=== PATIENT | male | born 1950 | race Caucasian/White ===

== ENCOUNTER 2021-03-28 14:55 | Emergency (ER) | payer MEDICARE, SELFPAY ==
[2021-03-28 15:06] VITALS: BP 219/79; PULSE 70; RESP 17; TEMP 37; O2SAT 96; BMI 23.1
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
[2021-03-28] MEDS: cephALEXin 500 mg Capsule PO (17:39)
[2021-03-28] MEDS: tetanus-dipt-pertussis 0.5 mL SDV IM (17:40)
== END 2021-03-28 17:47 | disposition home or self-care (01) ==
PROVIDERS: Emergency Provider Physician Assistant; PCP Family Medicine
DX: S51.812A Laceration without foreign body of left forearm, initial encounter (principal); X58.XXXA Exposure to other specified factors, initial encounter
CPT/HCPCS: 73090; 90471; 90715; 96372; 99283

== ENCOUNTER → 2021-05-13 09:20 | Outpatient (BNVA) | payer MEDICARE, SELFPAY | PROVIDERS: PCP Family Medicine; Visit Provider Family Medicine | DX: Z01.812 Encounter for preprocedural laboratory examination (principal) | CPT/HCPCS: 87635 ==

== ENCOUNTER 2021-05-19 07:15 | Outpatient (CLI) | payer MEDICARE, SELFPAY ==
--- NOTE | 2021-05-19 11:15 | PFTS_ITS ---
Date of Study:05/19/21 Date of Dictation: MECHANICS: Forced vital capacity (FVC) is normal. Forced expiratory volume in one second (FEV1) is reduced. FEV1/FVC is reduced. FLOW VOLUME LOOP: Reduced flow at all lung volumes with significant scooping. LUNG VOLUMES: Total lung capacity (TLC) is normal. Residual volume (RV) is increased. DIFFUSING CAPACITY FOR CARBON MONOXIDE: Normal. INTERPRETATION: The postbronchodilator spirometry is consistent with moderate airflow obstruction. There is a significant postbronchodilator response. Lung volumes are consistent with air trapping. Gas exchange (DLCO) is normal. MTDD
== END 2021-05-19 07:16 | disposition home or self-care (01) ==
LOC: RT 07:19
PROVIDERS: PCP Family Medicine; Visit Provider Family Medicine
DX: J44.9 Chronic obstructive pulmonary disease, unspecified (principal)
CPT/HCPCS: 94060; 94726; 94729; J7611

== ENCOUNTER 2021-12-16 18:24 | Emergency (ER) | payer MEDICARE, SELFPAY ==
[2021-12-16] VITALS (10 sets, daily range): BP systolic 97–134; BP diastolic 68–81; PULSE 56–80; RESP 12–23; TEMP 36.7; O2SAT 90–96; BMI 21.5; BMI 21.8
--- NOTE | 2021-12-16 18:28 | ECG_ITS ---
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 Measurements Intervals [place] Rate: 66 P: 72 [place]: 154 QRS: 83 QRSD: 88 T: 76 QT: 383 QTc: 402 Interpretive Statements SINUS RHYTHM WITH MARKED SINUS ARRHYTHMIA Compared to ECG 10/18/2016 13:06:51 Sinus bradycardia no longer present Electronically Signed On 12-16-2021 23:21:52 CDT by Jake Ferrer M.D. [email or web address] north [email or web address]/store/[id number]
--- NOTE | 2021-12-16 18:28 | XRR_ITS ---
PROCEDURE INFORMATION: Exam: XR Chest Exam date and time: 12/16/2021 6:48 PM Age: 71 years old Clinical indication: Angina; Additional info: Chest pain TECHNIQUE: Imaging protocol: Radiologic exam of the chest. Views: 1 view. COMPARISON: CR XR chest 2V* [id number] 04/08/2021 10:15 AM FINDINGS: Lungs: Visualized portions of the lungs are clear. Pulmonary hyperinflation unchanged. Pleural spaces: Unremarkable. No pleural effusion. No pneumothorax. Heart/Mediastinum: Heart is within normal limits of size. Bones/joints: Unremarkable. XR/XR chest 1V portable [id number] IMPRESSION: No acute infiltrate
--- NOTE | 2021-12-16 18:32 | ED_ITS ---
HPI - Chest Pain General: Chief Complaint: Chest Pain Stated Complaint: CHEST PAIN Time Seen by Provider: 12/16/21 18:31 History of Present Illness: Mr. Ohara is a 71-year-old gentleman with history of COPD who presents to the emergency department due to chest discomfort. He reports being at his baseline health and is quite active at baseline. At approximately 530 he had onset at rest of aching pressure in the left anterior chest with radiation down the left arm. He had associated clamminess and generalized malaise. He since has had mild cough and some shortness of breath. Denies frequent episodes in the past. Intensity of symptoms when present was moderate. Course has persisted. No other specific changes in health, exacerbating, or alleviating factors identified. Onset (ago): hour(s) Timing of current episode: constant Onset: during rest Pain location: left chest Pain radiation: left arm and left shoulder Severity: moderate Quality: tightness and aching Associated symptoms: Reports diaphoresis, dyspnea and other Review of Systems General: Reports: 10 or more systems reviewed and unremarkable except in HPI and below Const: Reports: diaphoresis Resp: Reports: dyspnea PFSH ED PFSH: Medical History (Updated 12/24/21 @ 00:01 by ) COPD (chronic obstructive pulmonary disease) Surgical History (Updated 12/16/21 @ 18:50 by Akhil Gage MD) History of spinal fusion Social History (Updated 12/16/21 @ 18:50 by Akhil Gage MD) Smoking and tobacco status: former smoker Physical Exam Const: COMMON NORMALS: alert GENERAL APPEARANCE: cooperative and well developed HENMT: COMMON NORMALS: normocephalic and atraumatic HEAD & SCALP: normocephalic and atraumatic Eye: COMMON NORMALS: conjunctivae normal CONJUNCTIVA: Yes conjunctivae normal SCLERA: sclerae normal Neck/C-Spine: COMMON NORMALS: supple GENERAL: Yes trachea midline Resp: COMMON NORMALS: normal respiratory effort and clear to auscultation bilaterally EFFORT & INSPECTION: Yes able to speak in complete sentences AUSCULTATION: clear to auscultation bilaterally Cardio: COMMON NORMALS: regular rate and regular rhythm RATE: regular rate RHYTHM: regular rhythm GI: COMMON NORMALS: Soft to palpation PALPATION: Yes Soft to palpation and No Tenderness to palpation present (GI) Extremity: GENERAL: Yes normal exam except as noted and No edema Neuro: COMMON NORMALS: moves all extremities SENSORIUM/ORIENTATION: Yes alert and No Orientation impaired Psych: COMMON NORMALS: mental status grossly normal and Normal thought process present THOUGHT PROCESS: Normal thought process present Course ED course: - Patient was seen and evaluated by me at bedside - Patient placed on cardiac monitors, IV access obtained - Initial evaluation notable for exam above - Labs and xrays personally interpreted by me EKG with sinus rhythm, no STEMI. -Aspirin and nitro given - Labs notable for no leukocytosis, normal hemoglobin. Metabolic panel without significant derangement. Delta troponin negative. Viral studies negative. - Imaging notable for no lobar consolidation or pneumothorax - Upon serial reexamination after treatment the patient was improved - Based on patient history, evaluation, and testing as interpreted the most likely cause of the patient's condition is chest pain of uncertain etiology - The results of ED evaluation were discussed with the patient including possible disposition options. I discussed risk stratification by heart score and estimated risk of major adverse cardiac events. The patient wishes to proc eed with outpatient management. I discussed prescriptions and/or symptomatic cares (if applicable) including appropriate and responsible use, followup plan, and return precautions. The patient verbalized understanding and felt safe for discharge. - Patient discharged in satisfactory condition. Note: Click bubbles or prepopulated horne in note writing are used for assistance with data collection and billing and are inherently more limited than narrative and other text portions of this note. Please use narrative for additional clinical history and defer to narrative/free test for any case of contradictory information. If information appears in only free text or click bubble it should be considered present or absent as reported. Please contact note teletypewriter installer for clarifications of clinical information or contradictory information. MDM is a brief summary, contradictory or erroneous seeming information should be clarified and full note should be reviewed. Vital Signs: Vital signs: Vital Signs Temperature 98.1 F 12/16/21 18:34 Pulse Rate 59 L 12/16/21 22:45 Respiratory Rate 14 12/16/21 22:45 Blood Pressure 134/79 12/16/21 22:45 Pulse Oximetry 95 12/16/21 22:45 Oxygen Delivery Ne thod 12/16/21 21:30 MDM - Chest Pain Medical Decision Making 71-year-old gentleman without any past medical tree presenting with chest pain. Negative troponins. No clear etiology of patient's symptoms. We engaged in shared thinking regarding disposition patient wishes to proceed with further testing in the outpatient setting. Case management will be messaged. Satisfactory for outpatient management with strict return precautions. Medical Records I reviewed the patient's medical records. Lab Data I reviewed the patient's lab results. : 12/16/21 18:42 12/16/21 18:42 Radiology Impressions Chest X-Ray 12/16/21 18:28 IMPRESSION: No acute infiltrate Laboratory Results WBC 7.9 10^3/uL (4.0-10.0) 12/16/21 18:42 RBC 4.46 10^6/uL (4.1-5.3) 12/16/21 18:42 Hgb 14.2 g/dL (11.7-16.6) 12/16/21 18:42 Hct 42.6 % (42.0-52.0) 12/16/21 18:42 MCV 95.5 fl (80-94) H 12/16/21 18:42 MCH 31.8 pg (28.0-34.0) 12/16/21 18:42 MCHC 33.3 g/dL (30.0-36.0) 12/16/21 18:42 RDW 12.5 % (12.1-15.1) 12/16/21 18:42 Plt Count 251 10^3/cmm (130-400) 12/16/21 18:42 MPV 10.0 fL (7.4-10.4) 12/16/21 18:42 Neut % (Auto) 58.6 % 12/16/21 18:42 Lymph % (Auto) 30.7 % 12/16/21 18:42 [place]et % (Auto) 8.8 % 12/16/21 18:42 Eos % (Auto) 1.4 % 12/16/21 18:42 Baso % (Auto) 0.4 % 12/16/21 18:42 Neut # (Auto) 4.60 10^3/uL (1.8-7.7) 12/16/21 18:42 Lymph # (Auto) 2.4 10^3/uL (0.8-4.8) 12/16/21 18:42 [place]et # (Auto) 0.7 10^3/uL (0.2-0.9) 12/16/21 18:42 Eos # (Auto) 0.1 10^3/uL (0.0-0.8) 12/16/21 18:42 Baso # (Auto) 0.0 10^3/uL (0.0-0.1) 12/16/21 18:42 Nucleated RBC % (auto) 0 % 12/16/21 18:42 Nucleated RBCs # 0.0 /100WBC 12/16/21 18:42 Sodium 138 mmol/L (136-145) 12/16/21 18:42 Potassium 3.9 mmol/L (3.5-5.1) 12/16/21 18:42 Chloride 101 mmol/L (98-107) 12/16/21 18:42 Carbon Dioxide 25 mmol/L (22-29) 12/16/21 18:42 Anion Gap 15.9 (5-19) 12/16/21 18:42 BUN 20 mg/dL (8-23) 12/16/21 18:42 Creatinine 0.9 mg/dL (0.7-1.2) 12/16/21 18:42 GFR Calculation 83.4 mL/min (90-130) L 12/16/21 18:42 Glucose 137 mg/dL (65-115) H 12/16/21 18:42 Calculated Osmolality 291 mOsm/kg (285-295) 12/16/21 18:42 Calcium 9.3 mg/dL (8.5-10.5) 12/16/21 18:42 Total Bilirubin 0.2 mg/dL (0.15-1.2) 12/16/21 18:42 Direct Bilirubin 0.20 mg/dL (0.00-0.30) 12/16/21 18:42 AST 16 U/L (0-40) 12/16/21 18:42 ALT 13 U/L (0-41) 12/16/21 18:42 Alkaline Phosphatase 77 IU/L (40-130) 12/16/21 18:42 Troponin T Baseline 7 ng/L (0-15) 12/16/21 18:42 Troponin T 120 Minute 7.32 ng/L (0-15) 12/16/21 21:05 Delta Troponin T 0.32 ABS# (0-10) 12/16/21 21:05 NT-Pro-B Natriuret Pep 81 pg/mL (0-125) 12/16/21 18:42 Total Protein 6.4 g/dL (6.6-8.7) L 12/16/21 18:42 Albumin 4.6 g/dL (3.5-5.2) 12/16/21 18:42 Globulin 1.8 g/dL (1.3-4.6) 12/16/21 18:42 Lipase 27 U/L (13-60) 12/16/21 18:42 Influenza Type A Ag Negative (Negative) 12/16/21 20:14 Influenza Type B Ag Negative (Negative) 12/16/21 20:14 SARS-CoV-2 Ag (Rapid) Negative (Negative) 12/16/21 20:14 Discharge Plan Discharge Patient Disposition: Home Clinical Impression: Chest pain Condition: Stable Prescriptions: No Action Tylenol Ex Str Rapid Release 500 mg Tablet 1,000 mg PO Q6H PRN (Reason: Pain) Discharge Orders: Discharge ED (Routine); Ordered 12/16/21 Ordered By: Akhil Gage Referrals: Karen Gay MD [Primary Care Provider] - Patient Instructions: Chest Pain (ED) Activity Restrictions/Additional Instructions: Thank you for visiting the emergency department. You were seen and evaluated for chest pain. The exact cause of your symptoms is unclear though as discussed does require further evaluation. I will message case management for outpatient stress test and echocardiogram. Please follow-up with your primary care provider. Please return to the emergency department for recurrence of symptoms or anything else that you are concerned about and feel needs emergency department evaluation. Coding Level of Care Code ED Refrigeration Insulator for Blake Fwd Exam Comprehensive
[2021-12-16 18:59] LABS: Basophils % 0.4 %; Eosinophils # 0.1 10^3/uL (0.0-0.8); Eosinophils % 1.4 %; Hematocrit 42.6 % (42.0-52.0); Hemoglobin 14.2 g/dL (11.7-16.6); Lymphocytes # 2.4 10^3/uL (0.8-4.8); Lymphocytes % 30.7 %; Mean Corpuscular HGB Conc 33.3 g/dL (30.0-36.0); Mean Corpuscular Hemoglobin 31.8 pg (28.0-34.0); Mean Corpuscular Volume 95.5 fl (80-94); Monocytes # 0.7 10^3/uL (0.2-0.9); Monocytes % 8.8 %; Neutrophils % 58.6 %; Nucleated Red Blood Cells % 0 %; Platelet Count 251 10^3/cmm (130-400); Red Blood Count 4.46 10^6/uL (4.1-5.3); Red Cell Distribution Width 12.5 % (12.1-15.1); White Blood Count 7.9 10^3/uL (4.0-10.0)
[2021-12-16] MEDS: aspirin 81 mg Chew Tablet 324 MG PO (19:10)
[2021-12-16 19:51] LABS: Troponin(5th) Baseline 7 ng/L (0-15)
[2021-12-16 19:52] LABS: Alanine Aminotransferase 13 U/L (0-41); Albumin Level 4.6 g/dL (3.5-5.2); Alkaline Phosphatase 77 IU/L (40-130); Anion Gap 15.9 (5-19); Aspartate Amino Transferase 16 U/L (0-40); Blood Urea Nitrogen 20 mg/dL (8-23); Calcium 9.3 mg/dL (8.5-10.5); Carbon Dioxide 25 mmol/L (22-29); Chloride 101 mmol/L (98-107); Globulin 1.8 g/dL (1.3-4.6); Glomerular Filtration Rate 83.4 mL/min (90-130); Glucose 137 mg/dL (65-115); Lipase 27 U/L (13-60); NT Pro B Type Natriuretic Pept 81 pg/mL (0-125); Osmolality Calculated 291 mOsm/kg (285-295); Potassium 3.9 mmol/L (3.5-5.1); Sodium 138 mmol/L (136-145); Total Bilirubin 0.2 mg/dL (0.15-1.2); Total Protein 6.4 g/dL (6.6-8.7)
--- NOTE | 2021-12-16 20:28 | ECG_ITS ---
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 Measurements Intervals [place] Rate: 58 P: 74 PA: 150 QRS: 81 QRSD: 93 T: 76 QT: 408 QTc: 403 Interpretive Statements SINUS BRADYCARDIA MODERATE ST DEPRESSION [0.05+ mV ST DEPRESSION] Compared to ECG 12/16/2021 18:31:11 ST (T wave) deviation now present Sinus rhythm no longer present Sinus arrhythmia no longer present Electronically Signed On 12-16-2021 23:23:01 CDT by Jake Ferrer M.D. [id number]
[2021-12-16 20:53] LABS: SARS Covid-2 Antigen Negative (Negative)
[2021-12-16 20:54] LABS: Influenza A by IFA Negative (Negative); Influenza B by IFA Negative (Negative)
[2021-12-16 21:28] LABS: Troponin 5 2HR 7.32 ng/L (0-15)
[2021-12-16 21:47] LABS: Troponin 5 2HR Delta 0.32 ABS# (0-10)
--- NOTE | 2021-12-17 12:26 | DCPLANNER ---
Addendum entered by Shiloh Tejada 02/18/22 13:46: Patient had a stress test scheduled - patient did attend appointment Patient had an outpatient echo scheduled - patient did attend appointment. Original Note: manager packaging had message to schedule an outpatient stress test and echo cardiogram for patient. manager packaging faxed signed order to centralized scheduling, who will call patient with appointment information.
== END 2021-12-16 22:44 | disposition home or self-care (01) ==
PROVIDERS: Emergency Medicine; Emergency Provider Emergency Medicine; PCP Family Medicine
DX: R07.9 Chest pain, unspecified (principal); J44.9 Chronic obstructive pulmonary disease, unspecified; Z87.891 Personal history of nicotine dependence; Z20.822 Contact with and (suspected) exposure to COVID-19
CPT/HCPCS: 71045; 80048; 80076; 83690; 83880; 84484; 85025; 87426; 87804; 93005; 96375; 99285

== ENCOUNTER 2022-01-19 11:08 | Emergency (ER) | payer MEDICARE, SELFPAY ==
[2022-01-19] VITALS (7 sets, daily range): BP systolic 118–148; BP diastolic 54–91; PULSE 55–87; RESP 12–18; TEMP 36.8; O2SAT 94–99; BMI 23.1
--- NOTE | 2022-01-19 11:09 | ECG_ITS ---
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 Measurements Intervals [place] Rate: 73 P: 81 [place]: 146 QRS: 86 QRSD: 92 T: 83 QT: 368 QTc: 408 Interpretive Statements SINUS RHYTHM Compared to ECG 12/16/2021 20:45:19 Sinus bradycardia no longer present ST (T wave) deviation no longer present Electronically Signed On 01-19-2022 17:49:56 CDT by Jake Ferrer M.D. [id number]
--- NOTE | 2022-01-19 11:27 | XRR_ITS ---
PROCEDURE INFORMATION: Exam: XR Chest Exam date and time: 01/19/2022 11:39 AM Age: 71 years old Clinical indication: Pain; Angina pectoris; Additional info: Chest pain TECHNIQUE: Imaging protocol: Radiologic exam of the chest. Views: 1 view. Total images: [id number] COMPARISON: CR (CHEST, ) 12/16/2021 6:48 PM FINDINGS: Lungs: Unremarkable. No consolidation. Pleural spaces: Unremarkable. No pleural effusion. No pneumothorax. Heart/Mediastinum: Unremarkable. No cardiomegaly. Bones/joints: Unremarkable. XR/XR chest 1V portable [id number] IMPRESSION: No acute findings.
--- NOTE | 2022-01-19 11:30 | PC.NURSE ---
pt reports 2 weeks ago he was seen here for CP where admission was recommended but pt wanted to go home. pt reports his pcp gave him nitro and asa. reports shooting pains to chest. pain worsens when walking or working, but also intermittently worsens at rest. pain is reproducible with palpitation to right side ribs. pt speech clear, speaking in complete sentences without difficulty.
[2022-01-19 11:45] LABS: Basophils % 0.4 %; Eosinophils # 0.1 10^3/uL (0.0-0.8); Eosinophils % 0.8 %; Hematocrit 51.5 % (42.0-52.0); Hemoglobin 16.4 g/dL (11.7-16.6); Lymphocytes # 2.9 10^3/uL (0.8-4.8); Lymphocytes % 31.8 %; Mean Corpuscular HGB Conc 31.8 g/dL (30.0-36.0); Mean Corpuscular Hemoglobin 31.5 pg (28.0-34.0); Mean Platelet Volume 10.2 fL (7.4-10.4); Monocytes # 0.7 10^3/uL (0.2-0.9); Monocytes % 7.9 %; Neutrophils # 5.44 10^3/uL (1.8-7.7); Neutrophils % 58.8 %; Nucleated Red Blood Cells % 0 %; Platelet Count 225 10^3/cmm (130-400); Red Cell Distribution Width 17.4 % (12.1-15.1); White Blood Count 9.3 10^3/uL (4.0-10.0)
--- NOTE | 2022-01-19 11:45 | W.ED.CHESTPA ---
HPI - Chest Pain General: Chief Complaint: Chest Pain Stated Complaint: chest pain Time Seen by Provider: 01/19/22 11:26 History of Present Illness: 71-year-old male presenting today with left-sided chest pain. Patient notes that he has had left-sided chest pain intermittently for 3 days. Has been previously evaluated in this emergency room for the same. Notes pain has been intermittent. He describes a stabbing sensation. Not worse or improved by anything. Is currently being followed by his primary care doctor for the same. He denies fevers or chills. He denies cough. He does have chronic shortness of breath secondary to COPD. Does not appear to be worse from baseline. He denies pain or swelling in his lower extremities. He denies history of blood clots. He denies history of coronary artery disease. Review of Systems General: Reports: 10 or more systems reviewed and unremarkable except in HPI and below PFS ED PFSH: Medical History (Updated 01/19/22 @ 13:42 by Braulio Tatum DO) COPD (chronic obstructive pulmonary disease) Surgical History (Updated 12/16/21 @ 18:50 by Akhil Gage MD) History of spinal fusion Social History (Updated 12/16/21 @ 18:50 by Akhil Gage MD) Smoking and tobacco status: former smoker Physical Exam Const: COMMON NORMALS: no acute distress, patient oriented x3 and alert GENERAL APPEARANCE: cooperative ORIENTATION/CONSCIOUSNESS: Yes awake, Yes oriented to person, Yes oriented to place and Yes oriented to time HENMT: COMMON NORMALS: normocephalic, atraumatic, external ears normal, Normal external nose present and moist oral mucous membranes HEAD & SCALP: normal to inspection, normocephalic and atraumatic NOSE: Normal external nose present GENERAL EAR: hearing grossly impaired EXTERNAL EAR: Yes external ears normal Eye: COMMON NORMALS: Equal, round and reactive pupils present, EOMs intact bilaterally, conjunctivae normal and no scleral icterus GENERAL EYE: appearance normal, both eyes and all related structures EYELID: eyelids normal CONJUNCTIVA: Yes conjunctivae normal SCLERA: sclerae normal PUPIL: Yes Equal, round and reactive pupils present Neck/C-Spine: COMMON NORMALS: full ROM, supple and no JVD GENERAL: Yes normal visual inspection Lymph: LYMPHATIC: no lymphadenopathy noted and no lymphedema noted Chest: COMMONS NORMALS: normal inspection of the chest Resp: COMMON NORMALS: normal respiratory effort, No retractions and No use of accessory muscles Cardio: COMMON NORMALS: no JVD, regular rate and regular rhythm RATE: regular rate RHYTHM: regular rhythm GI: COMMON NORMALS: Normal to inspection, nondistended, normoactive bowel sounds present : COMMON NORMALS: Yes no CVA tenderness BLADDER/KIDNEY EXAM: Yes no CVA tenderness Back/Pelvis: COMMON NORMALS: no CVA tenderness and thoracic and lumbar spine normal to inspection Extremity: COMMON NORMALS: normal to inspection, full ROM and capillary refill normal GENERAL: Yes normal exam except as noted Neuro: COMMON NORMALS: patient oriented x3, CN's II-XII intact bilaterally, moves all extremities, no focal motor deficits, no sensory deficits noted and gait normal SENSORIUM/ORIENTATION: Yes alert, Yes oriented to person, Yes oriented to place and Yes oriented to time Psych: COMMON NORMALS: mental status grossly normal, Normal thought process present, cooperative and normal affect THOUGHT PROCESS: Normal thought process present Skin: COMMON NORMALS: no rashes or lesions noted and no wounds GENERAL SKIN EXAM: no rashes or lesions noted Course Vital Signs: Vital signs: Vital Signs Temperature 98.2 F 01/19/22 11:13 Pulse Rate 65 01/19/22 11:13 Respiratory Rate 18 01/19/22 11:13 Blood Pressure 148/91 01/19/22 11:13 Pulse Oximetry 97 01/19/22 11:13 Oxygen Delivery Me thod 01/19/22 11:13 MDM - Chest Pain Medical Decision Making 71-year-old male presenting today with left-sided chest pain. EKG with normal sinus rhythm without evidence of acute ischemia, or cardiac arrhythmias. Vitals with slightly elevated blood pressure otherwise within normal limits. CBC is unremarkable. CMP is unremarkable. Troponin is within normal range. Patient with chest pain does not appear to represent acute coronary syndrome. Recommended routine follow-up with his primary care for further evaluation and management. Return precautions were given and recommended routine outpatient follow-up. Lab Data : 01/19/22 11:35 01/19/22 12:55 Radiology Impressions Chest X-Ray 01/19/22 11:27 IMPRESSION: No acute findings. Laboratory Results WBC 9.3 10^3/uL (4.0-10.0) 01/19/22 11:35 RBC 5.20 10^6/uL (4.1-5.3) 01/19/22 11:35 Hgb 16.4 g/dL (11.7-16.6) 01/19/22 11:35 Hct 51.5 % (42.0-52.0) 01/19/22 11:35 MCV 99.0 fl (80-94) H 01/19/22 11:35 MCH 31.5 pg (28.0-34.0) 01/19/22 11:35 MCHC 31.8 g/dL (30.0-36.0) 01/19/22 11:35 RDW 17.4 % (12.1-15.1) H 01/19/22 11:35 Plt Count 225 10^3/cmm (130-400) 01/19/22 11:35 MPV 10.2 fL (7.4-10.4) 01/19/22 11:35 Neut % (Auto) 58.8 % 01/19/22 11:35 Lymph % (Auto) 31.8 % 01/19/22 11:35 [place] % (Auto) 7.9 % 01/19/22 11:35 Eos % (Auto) 0.8 % 01/19/22 11:35 Baso % (Auto) 0.4 % 01/19/22 11:35 Neut # (Auto) 5.44 10^3/uL (1.8-7.7) 01/19/22 11:35 Lymph # (Auto) 2.9 10^3/uL (0.8-4.8) 01/19/22 11:35 [place] # (Auto) 0.7 10^3/uL (0.2-0.9) 01/19/22 11:35 Eos # (Auto) 0.1 10^3/uL (0.0-0.8) 01/19/22 11:35 Baso # (Auto) 0.0 10^3/uL (0.0-0.1) 01/19/22 11:35 Nucleated RBC % (auto) 0 % 01/19/22 11:35 Nucleated RBCs # 0.0 /100WBC 01/19/22 11:35 D-Dimer 0.28 ug/mIFEU (0-0.59) 01/19/22 12:55 Sodium 138 mmol/L (136-145) 01/19/22 12:55 Potassium 4.2 mmol/L (3.5-5.1) 01/19/22 12:55 Chloride 102 mmol/L (98-107) 01/19/22 12:55 Carbon Dioxide 24 mmol/L (22-29) 01/19/22 12:55 Anion Gap 16.2 (5-19) 01/19/22 12:55 BUN 12 mg/dL (8-23) 01/19/22 12:55 Creatinine 0.7 mg/dL (0.7-1.2) 01/19/22 12:55 GFR Calculation 111.5 mL/min (90-130) 01/19/22 12:55 Glucose 89 mg/dL (65-115) 01/19/22 12:55 Calculated Osmolality 285 mOsm/kg (285-295) 01/19/22 12:55 Calcium 9.7 mg/dL (8.5-10.5) 01/19/22 12:55 Total Bilirubin 0.7 mg/dL (0.15-1.2) 01/19/22 12:55 AST 14 U/L (0-40) 01/19/22 12:55 ALT 13 U/L (0-41) 01/19/22 12:55 Alkaline Phosphatase 75 U/L (40-130) 01/19/22 12:55 Troponin T Baseline 8 ng/L (0-15) 01/19/22 12:55 Total Protein 6.7 g/dL (6.6-8.7) 01/19/22 12:55 Albumin 4.8 g/dL (3.5-5.2) 01/19/22 12:55 Globulin 1.9 g/dL (1.3-4.6) 01/19/22 12:55 Discharge Plan Discharge Patient Disposition: Home Clinical Impression: Chest pain Condition: Stable Prescriptions: No Action acetaminophen [Tylenol Ex Str Rapid Release] 500 mg Tablet 1,000 mg PO Q6H PRN (Reason: Pain) Aspir-81 81 mg Tablet,Delayed Release (Dr/Ec) 81 mg PO QAM Nitrostat 0.4 mg Tablet, Sublingual 0.4 mg SUBLINGUAL Q5M PRN (Reason: Chest Pain) Rx Instructions: do not exceed 3 doses per episode Discharge Orders: Discharge ED (Routine); Ordered 01/19/22 Ordered By: Braulio Tatum Referrals: Karen Gay MD [Primary Care Provider] - Discharge Diet: Advance as tolerated Discharge Activity: Resume usual activity Patient Instructions: Chest Pain (ED) Coding Level of Care Code ED Compensation And Benefits Analyst for Chg Fwd Exam Comprehensive
[2022-01-19 13:26] LABS: D Dimer 0.28 ug/mIFEU (0-0.59)
[2022-01-19] MEDS: lidocaine 2% viscous 15 ML, aluminum-mag hydrox-simethicon 30 ML, sucralfate oral liq 1 GM PO (13:29)
[2022-01-19] MEDS: acetaminophen 500 mg Tablet 1000 MG PO (13:30)
[2022-01-19 13:37] LABS: Alanine Aminotransferase 13 U/L (0-41); Albumin Level 4.8 g/dL (3.5-5.2); Alkaline Phosphatase 75 U/L (40-130); Anion Gap 16.2 (5-19); Aspartate Amino Transferase 14 U/L (0-40); Blood Urea Nitrogen 12 mg/dL (8-23); Calcium 9.7 mg/dL (8.5-10.5); Carbon Dioxide 24 mmol/L (22-29); Chloride 102 mmol/L (98-107); Globulin 1.9 g/dL (1.3-4.6); Glomerular Filtration Rate 111.5 mL/min (90-130); Glucose 89 mg/dL (65-115); Osmolality Calculated 285 mOsm/kg (285-295); Potassium 4.2 mmol/L (3.5-5.1); Sodium 138 mmol/L (136-145); Total Bilirubin 0.7 mg/dL (0.15-1.2); Total Protein 6.7 g/dL (6.6-8.7)
[2022-01-19 13:39] LABS: Troponin(5th) Baseline 8 ng/L (0-15)
--- NOTE | 2022-01-19 14:00 | ECG_ITS ---
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 Measurements Intervals [place] Rate: 55 P: 78 ND: 149 QRS: 88 QRSD: 90 T: 85 QT: 414 QTc: 396 Interpretive Statements SINUS BRADYCARDIA Compared to ECG 01/19/2022 11:12:42 Sinus rhythm no longer present Electronically Signed On 01-19-2022 17:51:53 CDT by Jake Ferrer M.D. [email or web address] [email or web address] state hospitalSingularbrecksville va / crille hospitalEncompass Media/store/OM/[id number]
== END 2022-01-19 14:20 | disposition home or self-care (01) ==
PROVIDERS: Emergency Provider Emergency Medicine; PCP Family Medicine
DX: R07.9 Chest pain, unspecified (principal); Z79.82 Long term (current) use of aspirin; J44.9 Chronic obstructive pulmonary disease, unspecified; Z87.891 Personal history of nicotine dependence
CPT/HCPCS: 36415; 71045; 80053; 84484; 85025; 85378; 93005; 99285

== ENCOUNTER 2022-02-04 08:47 | Outpatient (CLI) | payer MEDICARE, SELFPAY ==
[2022-02-04 09:03] VITALS: BMI 23.1
--- NOTE | 2022-02-04 09:03 | ECG_ITS ---
[facility] Test Date: 2022-02-04 Pat Name: Steven Ohara Department: Room: Gender: Male Night Clerk: Sabi OvalleKerrie : 1950 Requested By: Akhil Gage Order Number: [id number] Alexus MD: Jake Ferrer M.D. Interpretive Statements NAME OF STUDY: LEXISCAN SESTAMIBI STRESS TEST INDICATION: [Chest Pain, ] Procedure: At the baseline, the blood pressure was 136/83 mmHg with a heart rate of 51 bpm. The electrocardiogram showed sinus bradycardia, normal axis with normal ST and T's. The Lexiscan was infused over a period of 20 seconds. A total of 0.4 mg of Lexiscan was infused. The stress phase was continued for a total of 5 minutes. Heart rate was at the end of stress phase was 65 bpm and a blood pressure of 144/81 mmHg. The EKG at the peak infusion revealed since normal sinus rhythm with no significant ST-T wave changes. Sestamibi was injected 20 seconds after the Lexiscan infusion. Blood pressure at the end of recovery phase was 140/88 mmHg with a heart rate of 69 bpm. Conclusion: 1. Normal EKG response to Lexiscan infusion 2. No Lexiscan induced chest pain or cardiac arrhythmia. 3. Normal blood pressure and heart rate response. 4. Sestamibi/sestamibi perfusion scan pending; see separate report. Electronically Signed On 02-21-2022 21:25:15 CDT by Jake Ferrer M.D. [email or web address] Eticheascension [email or web address]/[id number]
--- NOTE | 2022-02-04 09:04 | NMCV_ITS ---
NM enriqueta perf SPECT r/s* [id number] Steven Ohara Age: 71 Gender: M : 1950 Exam Date: 02/04/2022 09:04 Ordering Phys: Akhil Gage MD Technologist: KANWAL Anton Exam Location: [facility] Indications: CP STRESS TEST Please see separate stress test report in [facility] for full findings IMAGE PROTOCOL Rest/Stress 1 Lexiscan Day Radiopharmaceutical Dose (mCi) Administration Site Administered by Rest: Tc-99m 10.6 IV KANWAL Anton Sestamibi Stress:Tc-99m 32.9 IV KANWAL Anton Sestamibi Rest: 04-Feb-2022 60 Discovery 630 Stress: 04-Feb-2022 30 Discovery 630 0.4mg Lexiscan. Supine position only as patient was unable to lay prone. SPECT RESULTS Technical Quality: Excellent Raw Data Analysis: Normal Image Corrections: No attenuation or motion correction applied Summed Stress Score: 3 Summed Rest Score: 2 Summed Difference Score: 2 PERFUSION FINDINGS There is a small in size, partially reversible perfusion defect noted in inferior wall. 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 FUNCTIONAL RESULTS (calculated via Gated SPECT) Stress Image LV EF (%): 66 Stress EDV (mL):116 TID: 1.01 Stress ESV (mL):40 FUNCTIONAL FINDINGS: There is normal left ventricular systolic function. IMPRESSIONS 1. 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 2. Normal LV systolic function. Jake Ferrer MD (Electronically Signed) Final Date: 06 February 2022 12:59 S
[2022-02-04] MEDS: regadenoson 0.4 Mg/5 ml Syringe IVP (10:30)
[2022-02-04 10:36] VITALS: BP 140/88; PULSE 69
== END 2022-02-04 08:48 | disposition home or self-care (01) ==
LOC: CDL 08:51
PROVIDERS: PCP Family Medicine; Visit Provider Emergency Medicine
DX: I25.2 Old myocardial infarction (principal); R07.9 Chest pain, unspecified
CPT/HCPCS: 78452; 93017; A9500; J2785

== ENCOUNTER → 2023-11-15 08:11 | Outpatient (BNVA) | payer MEDICARE, SELFPAY | PROVIDERS: PCP Family Medicine; Referring Provider Family Medicine; Visit Provider Student in an Organized Health Care Education/Training Program | DX: M25.841 Other specified joint disorders, right hand; G56.01 Carpal tunnel syndrome, right upper limb | CPT/HCPCS: 73130; 99203 ==

== ENCOUNTER 2023-12-13 07:52 | Outpatient (CLI) | payer MEDICARE, SELFPAY ==
--- NOTE | 2023-12-13 08:00 | MR_ITS ---
WS: [id number] MRI RIGHT HAND WITHOUT CONTRAST. COMPARISON: Radiograph 11/15/2023 Multiplanar, multisequence imaging is performed without contrast. Well-circumscribed soft tissue mass along the palmar surface of the hand. This is along the midline a spect of the hand there is contact and distortion of the palmar aponeurosis and the flexor retinaculu m. Mass measures 1.3 x 1.3 x 1.2 cm and follows fluid signal on all sequences. There is no surroundin g edema. The median nerve appears separate from the soft tissue mass. There is no marrow signal abnormality noted to suggest an acute fracture. Moderate degenerative queen es of osteoarthritis involving the first and second carpal metacarpal articulations. MR/MR hand RT wo con* [id number] IMPRESSION: 1. Well-circumscribed mass with fluid signal on all sequences along the palmar aspect of the hand measures 1.3 x 1.3 x 1.2 cm. This is most likely a ganglion or synovial cyst. Mass abuts and displaces the palmar aponeurosis and flexor r etinaculum but appears separate from the median nerve. 2. At least moderate osteoarthritic changes at the first and second carpal met acarpal joints.
== END 2023-12-13 07:53 | disposition home or self-care (01) ==
LOC: RAD 07:52
PROVIDERS: PCP Family Medicine; Visit Provider Student in an Organized Health Care Education/Training Program
DX: R22.31 Localized swelling, mass and lump, right upper limb (principal); M25.841 Other specified joint disorders, right hand; G56.01 Carpal tunnel syndrome, right upper limb; M18.11 Unilateral primary osteoarthritis of first carpometacarpal joint, right hand
CPT/HCPCS: 73218

== ENCOUNTER 2024-01-17 05:37 | Observation (INO) | payer MEDICARE, SELFPAY ==
[2024-01-17] VITALS (59 sets, daily range): BP systolic 81–150; BP diastolic 58–86; PULSE 54–77; RESP 10–20; TEMP 35.7–36.7; O2SAT 94–99; BMI 23.7
--- NOTE | 2024-01-17 05:41 | ECG_ITS ---
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 Measurements Intervals [place] Rate: 53 P: 72 NE: 164 QRS: 83 QRSD: 90 T: 81 QT: 423 QTc: 400 Interpretive Statements SINUS BRADYCARDIA Early repolarization changes in the inferior leads Compared to ECG 01/19/2022 14:00:10 No significant changes Electronically Signed On 01-17-2024 23:28:31 CDT by Eli Liriano M.D. [email or web address] medical ohiohealth rehabilitation hospital - dublinD.[employer]/store/OV/[id number]
--- NOTE | 2024-01-17 05:42 | XRR_ITS ---
PROCEDURE INFORMATION: Exam: XR Chest Exam date and time: 01/17/2024 5:50 AM Age: 73 years old Clinical indication: Other: Chest pain TECHNIQUE: Imaging protocol: Radiologic exam of the chest. Views: 1 view. COMPARISON: CR XR chest 1V portable [id number] 01/19/2022 11:39 AM FINDINGS: Lungs: Unremarkable. No consolidation. Pleural spaces: Unremarkable. No pleural effusion. No pneumothorax. Heart/Mediastinum: Unremarkable. No cardiomegaly. Bones/joints: Unremarkable. XR/XR chest 1V portable [id number] IMPRESSION: No acute findings.
--- NOTE | 2024-01-17 05:42 | ED_ITS ---
Documented by User: David Coronado DO 01/17/24 05:45 HPI - Chest Pain 2 General: Chief Complaint: Chest Pain Stated Complaint: CP Time Seen by Provider: 01/17/24 05:37 History of Present Illness: Patient presents to the ER with chest pain. Chest pain lasted about 30 minutes. Patient took 1 nitro with chest pain significantly decreased. Patient does not have a cardiac history per se. Patient did have 1 of these episodes approximately 1 year ago. Patient came to the ER and was worked up and was negative per him. Patient did say got mildly short of breath, mild nausea and mild diaphoresis during this episode. Patient now rates it about a 2. Patient takes an 81 mg aspirin daily. Related Data Home Medications Medication Instructions Recorded Confirmed acetaminophen 500 mg tablet 1,000 mg PO Q6H PRN Pain 12/16/21 01/17/24 aspirin 81 mg tablet,delayed 81 mg PO QAM 01/19/22 01/17/24 release nitroglycerin 0.4 mg sublingual 0.4 mg sublingual Q5M PRN Chest 01/19/22 01/17/24 tablet (Nitrostat) Pain Allergies Allergy/AdvReac Type Severity Reaction Status Date / Time No Known Allergies Allergy Verified 01/17/24 05:44 Review of Systems 2 General: Reports: 10 or more systems reviewed and unremarkable except in HPI and below PFSH ED 2 PFSH: Medical History COPD (chronic obstructive pulmonary disease) Surgical History History of spinal fusion Social History Smoking and tobacco/nicotine status: former use of tobacco/nicotine Physical Exam 2 Const: COMMON NORMALS: no acute distress, average body habitus, patient oriented x3, no limitations, healthy appearing, alert and well nourished HENMT: COMMON NORMALS: normocephalic, atraumatic, hearing grossly normal bilaterally, external ears normal, Normal external nose present and moist oral mucous membranes HEAD & SCALP: normocephalic and atraumatic NOSE: Normal external nose present EXTERNAL EAR: Yes external ears normal Neck/C-Spine: COMMON NORMALS: no JVD Chest: COMMONS NORMALS: normal inspection of the chest and normal palpation of entire chest wall Resp: COMMON NORMALS: normal respiratory effort, No retractions, No use of accessory muscles and clear to auscultation bilaterally AUSCULTATION: clear to auscultation bilaterally Cardio: COMMON NORMALS: no JVD, regular rate, regular rhythm, S1 normal heart sound present, S2 normal heart sound present, No gallops present (Cardio), No clicks present (Cardio), No murmurs present (Cardio) and No rub (Cardio) R ATE: regular rate RHYTHM: regular rhythm HEART SOUNDS: S1 normal heart sound present and S2 normal heart sound present GI: COMMON NORMALS: Normal to inspection, nondistended, normoactive bowel sounds present, Soft to palpation, non-tender, No hepatosplenomegaly present and no masses PALPATION: Yes Soft to palpation and Yes No hepatosplenomegaly present Neuro: COMMON NORMALS: patient oriented x3 SENSORIUM/ORIENTATION: Yes alert Course 2 Vital Signs: Vital signs: Vital Signs Temperature 98.0 F 01/17/24 05:37 Pulse Rate 59 L 01/17/24 08:00 Respiratory Rate 14 01/17/24 06:45 Blood Pressure 136/76 01/17/24 08:00 Pulse Oximetry 98 01/17/24 08:00 Oxygen Delivery Me thod Room Air 01/17/24 08:00 MDM - Chest Pain Medical Records I reviewed the patient's medical records. Lab Data I reviewed the patient's lab results. 01/17/24 05:30 01/17/24 05:30 Radiology Impressions Chest X-Ray 01/17/24 05:42 IMPRESSION: No acute findings. Laboratory Results WBC 12.11 10^3/uL (3.29-11.43) H 01/17/24 05:30 RBC 4.81 10^6/uL (3.85-5.65) 01/17/24 05:30 Hgb 15.00 g/dL (11.27-16.99) 01/17/24 05:30 Hct 44.7 % (37-53) 01/17/24 05:30 MCV 92.9 fl (82-101) 01/17/24 05:30 MCH 31.2 pg (27-33) 01/17/24 05:30 MCHC 33.6 g/dL (30-55) 01/17/24 05:30 RDW 12.2 % (12.1-15.1) 01/17/24 05:30 Plt Count 252 10^3/cmm (157-399) 01/17/24 05:30 MPV 9.9 fL (7.4-10.4) 01/17/24 05:30 Neut % (Auto) 43.0 % 01/17/24 05:30 Lymph % (Auto) 44.3 % 01/17/24 05:30 Bonner % (Auto) 9.9 % 01/17/24 05:30 Eos % (Auto) 1.9 % 01/17/24 05:30 Baso % (Auto) 0.5 % 01/17/24 05:30 Neut # (Auto) 5.20 10^3/uL (1.8-7.7) 01/17/24 05:30 Lymph # (Auto) 5.4 10^3/uL (0.8-4.8) H 01/17/24 05:30 Bonner # (Auto) 1.2 10^3/uL (0.2-0.9) H 01/17/24 05:30 Eos # (Auto) 0.2 10^3/uL (0.0-0.8) 01/17/24 05:30 Baso # (Auto) 0.1 10^3/uL (0.0-0.1) 01/17/24 05:30 Nucleated RBC % (auto) 0 % 01/17/24 05:30 Nucleated RBCs # 0.0 /100WBC 01/17/24 05:30 PT 12.50 SECONDS (12.1-14.9) 01/17/24 05:30 INR 0.91 (0.8-1.2) 01/17/24 05:30 Sodium 135 mmol/L (136-145) L 01/17/24 05:30 Potassium 4.3 mmol/L (3.5-5.1) 01/17/24 05:30 Chloride 99 mmol/L (98-107) 01/17/24 05:30 Carbon Dioxide 23 mmol/L (22-29) 01/17/24 05:30 Anion Gap 17.3 (5-19) 01/17/24 05:30 BUN 24 mg/dL (8-23) H 01/17/24 05:30 Creatinine 0.9 mg/dL (0.7-1.2) 01/17/24 05:30 GFR Calculation Not Reportable 01/17/24 05:30 Glucose 117 mg/dL (65-115) H 01/17/24 05:30 Calculated Osmolality 285 mOsm/kg (285-295) 01/17/24 05:30 Calcium 8.8 mg/dL (8.5-10.5) 01/17/24 05:30 Total Bilirubin 0.3 mg/dL (0.15-1.2) 01/17/24 05:30 AST 16 U/L (0-40) 01/17/24 05:30 ALT 14 U/L (0-41) 01/17/24 05:30 Alkaline Phosphatase 96 U/L (40-130) 01/17/24 05:30 Troponin T Baseline 12 ng/L (0-15) 01/17/24 05:30 Troponin T 120 Minute 11.20 ng/L (0-15) 01/17/24 07:02 Delta Troponin T -0.80 ABS# (0-10) L 01/17/24 07:02 Total Protein 6.5 g/dL (6.6-8.7) L 01/17/24 05:30 Albumin 4.2 g/dL (3.5-5.2) 01/17/24 05:30 Globulin 2.3 g/dL (1.3-4.6) 01/17/24 05:30 Discharge Plan Discharge Patient Disposition: Admitted As Inpatient Clinical Impression: Unstable angina pectoris Condition: Stable Prescriptions: No Action acetaminophen [Tylenol Ex Str Rapid Release] 500 mg Tablet 1,000 mg PO Q6H PRN (Reason: Pain) aspirin [Aspir-81] 81 mg Tablet,Delayed Release (Dr/Ec) 81 mg PO QAM nitroglycerin [Nitrostat] 0.4 mg Tablet, Sublingual 0.4 mg SUBLINGUAL Q5M PRN (Reason: Chest Pain) Rx Instructions: do not exceed 3 doses per episode Referrals: Karen Gay MD [Primary Care Provider] - Sign Out Sign Out Data: Patient Sign Out occurred on 01/17/24 at 05:54. Patient's care was discussed, and care was transferred from David Coronado DO to Jarvis Manrique DO. Coding Level of Care Code ED Telephone Appointment Clerk for Chg Fwd Documented by User: Jarvis Manrique DO 01/17/24 08:19 HPI - Chest Pain 2 General: Chief Complaint: Chest Pain Stated Complaint: CP Time Seen by Provider: 01/17/24 05:37 Related Data Home Medications Medication Instructions Recorded Confirmed acetaminophen 500 mg tablet 1,000 mg PO Q6H PRN Pain 12/16/21 01/17/24 aspirin 81 mg tablet,delayed 81 mg PO QAM 01/19/22 01/17/24 release nitroglycerin 0.4 mg sublingual 0.4 mg sublingual Q5M PRN Chest 01/19/22 01/17/24 tablet (Nitrostat) Pain Allergies Allergy/AdvReac Type Severity Reaction Status Date / Time No Known Allergies Allergy Verified 01/17/24 05:44 PFSH ED 2 PFSH: Medical History COPD (chronic obstructive pulmonary disease) Surgical History History of spinal fusion Social History Smoking and tobacco/nicotine status: former use of tobacco/nicotine Course 2 Vital Signs: Vital signs: Vital Signs Temperature 98.0 F 01/17/24 05:37 Pulse Rate 59 L 01/17/24 08:00 Respiratory Rate 14 01/17/24 06:45 Blood Pressure 136/76 01/17/24 08:00 Pulse Oximetry 98 01/17/24 08:00 Oxygen Delivery Me thod Room Air 01/17/24 08:00 MDM - Chest Pain Medical Decision Making Labs and imaging reviewed. Patient is having escalating angina of the last week or more. He had seen his primary care doctor his previous stress test in January 2022 was positive but he never had any follow-up on outpatient states he had not heard from anyone in he had basically forgotten about it. His primary care doctor had reviewed it noted it had been read as abnormal and is scheduled another stress test which is going to be done next month. Patient states the nitro did relieve his pain he was at rest when it began this morning he has been escalating episodes similar to this. He still rates his pain at a 2-3 out of 10 initially late prior to taking the nitro he states it was up to an 8 or 9 out of 10. Discussed with cardiology will admit for unstable angina. Blood pressures improved place half-inch topical nitro, will give 325 of chewable aspirin I also started on heparin. Admitted to hospitalist have discussed Dr. Kaur orders are written Medical Records I reviewed the patient's medical records. Lab Data I reviewed the patient's lab results. 01/17/24 05:30 01/17/24 05:30 Radiology Impressions Chest X-Ray 01/17/24 05:42 IMPRESSION: No acute findings. Laboratory Results WBC 12.11 10^3/uL (3.29-11.43) H 01/17/24 05:30 RBC 4.81 10^6/uL (3.85-5.65) 01/17/24 05:30 Hgb 15.00 g/dL (11.27-16.99) 01/17/24 05:30 Hct 44.7 % (37-53) 01/17/24 05:30 MCV 92.9 fl (82-101) 01/17/24 05:30 MCH 31.2 pg (27-33) 01/17/24 05:30 MCHC 33.6 g/dL (30-55) 01/17/24 05:30 RDW 12.2 % (12.1-15.1) 01/17/24 05:30 Plt Count 252 10^3/cmm (157-399) 01/17/24 05:30 MPV 9.9 fL (7.4-10.4) 01/17/24 05:30 Neut % (Auto) 43.0 % 01/17/24 05:30 Lymph % (Auto) 44.3 % 01/17/24 05:30 Bonner % (Auto) 9.9 % 01/17/24 05:30 Eos % (Auto) 1.9 % 01/17/24 05:30 Baso % (Auto) 0.5 % 01/17/24 05:30 Neut # (Auto) 5.20 10^3/uL (1.8-7.7) 01/17/24 05:30 Lymph # (Auto) 5.4 10^3/uL (0.8-4.8) H 01/17/24 05:30 Bonner # (Auto) 1.2 10^3/uL (0.2-0.9) H 01/17/24 05:30 Eos # (Auto) 0.2 10^3/uL (0.0-0.8) 01/17/24 05:30 Baso # (Auto) 0.1 10^3/uL (0.0-0.1) 01/17/24 05:30 Nucleated RBC % (auto) 0 % 01/17/24 05:30 Nucleated RBCs # 0.0 /100WBC 01/17/24 05:30 PT 12.50 SECONDS (12.1-14.9) 01/17/24 05:30 INR 0.91 (0.8-1.2) 01/17/24 05:30 Sodium 135 mmol/L (136-145) L 01/17/24 05:30 Potassium 4.3 mmol/L (3.5-5.1) 01/17/24 05:30 Chloride 99 mmol/L (98-107) 01/17/24 05:30 Carbon Dioxide 23 mmol/L (22-29) 01/17/24 05:30 Anion Gap 17.3 (5-19) 01/17/24 05:30 BUN 24 mg/dL (8-23) H 01/17/24 05:30 Creatinine 0.9 mg/dL (0.7-1.2) 01/17/24 05:30 GFR Calculation Not Reportable 01/17/24 05:30 Glucose 117 mg/dL (65-115) H 01/17/24 05:30 Calculated Osmolality 285 mOsm/kg (285-295) 01/17/24 05:30 Calcium 8.8 mg/dL (8.5-10.5) 01/17/24 05:30 Total Bilirubin 0.3 mg/dL (0.15-1.2) 01/17/24 05:30 AST 16 U/L (0-40) 08/20/24 05:30 ALT 14 U/L (0-41) 01/17/24 05:30 Alkaline Phosphatase 96 U/L (40-130) 01/17/24 05:30 Troponin T Baseline 12 ng/L (0-15) 01/17/24 05:30 Troponin T 120 Minute 11.20 ng/L (0-15) 01/17/24 07:02 Delta Troponin T -0.80 ABS# (0-10) L 01/17/24 07:02 Total Protein 6.5 g/dL (6.6-8.7) L 01/17/24 05:30 Albumin 4.2 g/dL (3.5-5.2) 01/17/24 05:30 Globulin 2.3 g/dL (1.3-4.6) 01/17/24 05:30 All radiology interpretation(s) finalized by discharge Discharge Plan Discharge Patient Disposition: Admitted As Inpatient Clinical Impression: Unstable angina pectoris Condition: Stable Prescriptions: No Action acetaminophen [Tylenol Ex Str Rapid Release] 500 mg Tablet 1,000 mg PO Q6H PRN (Reason: Pain) aspirin [Aspir-81] 81 mg Tablet,Delayed Release (Dr/Ec) 81 mg PO QAM nitroglycerin [Nitrostat] 0.4 mg Tablet, Sublingual 0.4 mg SUBLINGUAL Q5M PRN (Reason: Chest Pain) Rx Instructions: do not exceed 3 doses per episode Referrals: Karen Gay MD [Primary Care Provider] - Sign Out Sign Out Data: Patient Sign Out occurred on 01/17/24 at 05:54. Patient's care was discussed, and care was transferred from David Coronado DO to Jarvis Manrique DO. Coding Level of Care Code ED Telephone Appointment Clerk for Blake Conklin
[2024-01-17 05:50] LABS: Basophils # 0.1 10^3/uL (0.0-0.1); Basophils % 0.5 %; Eosinophils # 0.2 10^3/uL (0.0-0.8); Eosinophils % 1.9 %; Hematocrit 44.7 % (37-53); Lymphocytes # 5.4 10^3/uL (0.8-4.8); Lymphocytes % 44.3 %; Mean Corpuscular HGB Conc 33.6 g/dL (30-55); Mean Corpuscular Hemoglobin 31.2 pg (27-33); Mean Corpuscular Volume 92.9 fl (82-101); Mean Platelet Volume 9.9 fL (7.4-10.4); Monocytes # 1.2 10^3/uL (0.2-0.9); Monocytes % 9.9 %; Nucleated Red Blood Cells % 0 %; Platelet Count 252 10^3/cmm (157-399); Red Blood Count 4.81 10^6/uL (3.85-5.65); Red Cell Distribution Width 12.2 % (12.1-15.1); White Blood Count 12.11 10^3/uL (3.29-11.43)
[2024-01-17 06:02] LABS: INR 0.91 (0.8-1.2)
[2024-01-17 06:08] LABS: Troponin(5th) Baseline 12 ng/L (0-15)
[2024-01-17 06:12] LABS: Alanine Aminotransferase 14 U/L (0-41); Albumin Level 4.2 g/dL (3.5-5.2); Alkaline Phosphatase 96 U/L (40-130); Anion Gap 17.3 (5-19); Aspartate Amino Transferase 16 U/L (0-40); Blood Urea Nitrogen 24 mg/dL (8-23); Calcium 8.8 mg/dL (8.5-10.5); Carbon Dioxide 23 mmol/L (22-29); Chloride 99 mmol/L (98-107); Globulin 2.3 g/dL (1.3-4.6); Glucose 117 mg/dL (65-115); Osmolality Calculated 285 mOsm/kg (285-295); Potassium 4.3 mmol/L (3.5-5.1); Sodium 135 mmol/L (136-145); Total Bilirubin 0.3 mg/dL (0.15-1.2); Total Protein 6.5 g/dL (6.6-8.7)
--- NOTE | 2024-01-17 07:43 | ECG_ITS ---
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 Measurements Intervals Slater Rate: 53 P: 72 PA: 168 QRS: 85 QRSD: 87 T: 81 QT: 421 QTc: 399 Interpretive Statements SINUS BRADYCARDIA Compared to ECG 01/19/2022 14:00:10 No significant changes Electronically Signed On 01-17-2024 23:37:16 CDT by Eli Liriano M.D. [id number]
[2024-01-17] MEDS: nitroglycerin 1 gm/inch oint Pkt 0.5 INCH TOPICAL (08:33)
[2024-01-17] MEDS: aspirin 81 mg Chew Tablet 324 MG PO (08:33)
--- NOTE | 2024-01-17 08:37 | P.HP_ITS ---
Providers/Chief Complaint 2 Admitting Physician: Rome Kaur MD, hospitalist Primary Care Provider: Karen Gay MD Chief Complaint: CP History of Present Illness Steven Ohara is a 73 year old male presenting to the emergency department with chest discomfort. He reports he was awake, sitting on his couch around 3:45 AM when he started having discomfort in his shoulder blades and chest that was squeezing in nature. It was fairly severe, and he believes he had similar discomfort around a year or 2 ago. This was associated eventually with some diaphoresis and shortness of breath. Perhaps a little bit of nausea but no vomiting. Reports no recent exertional chest discomfort although he has occasional palpitations. 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 No recent fever, cough. Has COPD but has not needed inhalers in quite some time. No blood in stool, black or tarry stools, severe reflux. Over list aspirin on his home medicines he does not take this very often. He does have several nitroglycerin, and he took 1 with onset of his chest discomfort and this improved it somewhat. In the emergency department he was placed on topical nitroglycerin, started on a heparin drip, and given an aspirin. Review of Systems 2 General: Reports: 10 or more systems reviewed and unremarkable except in HPI and below Card: Reports: chest pain and palpitations Resp: Reports: dyspnea; Denies: productive cough or non-productive cough GI: Denies: abdominal pain, vomiting, hematochezia or melena Medications/Allergies Home Medications Medication Instructions Recorded Confirmed Last Taken Type acetaminophen 500 mg tablet 1,000 mg PO Q6H PRN Pain 12/16/21 01/17/24 12/16/21 History aspirin 81 mg tablet,delayed 81 mg PO QAM 01/19/22 01/17/24 01/19/22 History release nitroglycerin 0.4 mg sublingual 0.4 mg sublingual Q5M PRN Chest 01/19/22 01/17/24 01/17/24 History tablet (Nitrostat) Pain Allergies Allergy/AdvReac Type Severity Reaction Status Date / Time No Known Allergies Allergy Verified 01/17/24 05:44 PFSH Acute 2 PFSH: Medical History COPD (chronic obstructive pulmonary disease) Surgical History History of hernia surgery History of spinal fusion Family History Other Alzheimer's dementia Cancer Social History (Updated 01/17/24 @ 08:40 by Rome Kaur MD) Smoking and tobacco/nicotine status: former use of tobacco/nicotine Alcohol intake: current Alcohol intake frequency: 0-2 Drinks per Day Substance/Drug Use: current Substance/Drug use type: Marijuana Vitals/I&O/Wt Last Vital Signs Temp 98.0 F 01/17/24 05:37 Pulse 59 L 01/17/24 08:00 Resp 14 01/17/24 06:45 BP 136/76 01/17/24 08:00 Pulse Ox 98 01/17/24 08:00 O2 Del Method Room Air 01/17/24 08:00 Weight last 48 hrs Weight 81.647 kg Physical Exam 2 Narrative: General exam is a white male, who reports no chest discomfort now, who is in no distress. Heart rate is 59. HEENT: Atraumatic and normocephalic. Oropharynx clear Neck is supple no lymphadenopathy thyromegaly Cardiovascular regular rate and rhythm, heart sounds distant, no obvious murmur. No S3 or S4 Lungs clear but with diminished breath sounds bilaterally. No wheezing or crackles Abdomen is soft nontender positive bowel sounds. No obvious organomegaly. Surgical scars are noted exam is deferred Extremities no cyanosis, or edema, cap refill brisk. Skin no rash Neuro no focal deficits Data 01/17/24 05:30 01/17/24 05:30 Other Labs: Chest x-ray reviewed by me demonstrates no infiltrate. Slight hyperinflation. INR normal LFTs normal Troponin 12 with repeat of 11 Calcium and albumin normal I have ordered a TSH, and magnesium secondary to history of palpitations. EKG reviewed by me demonstrates sinus rhythm, bradycardia with a heart rate of around 52, normal axis, no acute changes. A&P Assessment and plan (1) Chest pain: Patient presents with history of chest discomfort. 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 No follow-up occurred after the stress test according to the patient. He does have significant tobacco history. Placement to hospital under observation Heparinize Aspirin 325 mg now and daily Lipitor 40 mg daily Lipid profile in the morning cardiology consultation, consideration for angiogram versus nuclear stress test Echocardiogram to delineate LV function Hold off on beta-annemarie currently secondary to bradycardia Finish troponin and EKG series Nitroglycerin ointment given in the emergency department. Can hold off on further ointment as long as patient remains discomfort free. From my understanding he had slightly borderline low blood pressure of 102/68 when this was applied (2) Palpitations: Patient with history of palpitations. Check TSH and magnesium Echocardiogram as above (3) COPD (chronic obstructive pulmonary disease): Patient with history of COPD He has stopped tobacco, but is smoking THC. He has not had any active wheezing in quite some time DuoNeb as needed Plan Full code currently Heparin will suffice for DVT prophylaxis along with SCDs Attestations 2 Medical Necessity Statement*: Will need less than 2 midnight stay for evaluation of chest discomfort Diagnoses Chest pain R07.9 Palpitations R00.2 COPD (chronic obstructive pulmonary disease) J44.9 Time Spent (min) 49
[2024-01-17] MEDS: heparin 5,000 unit/mL INJ 1 mL IVP (08:46)
[2024-01-17] MEDS: heparin drip 25,000 UNIT/500 ML PREMIX 23 UNIT IV (08:47)
[2024-01-17 09:20] LABS: Magnesium 2.2 mg/dL (1.7-2.3); Thyroid Stimulating Hormone 2.12 uIU/mL (0.27-4.20)
[2024-01-17 09:57] LABS: INR 0.98 (0.8-1.2)
--- NOTE | 2024-01-17 10:04 | P.CONIM_ITS ---
Providers/Reason For Consult 2 Consulting Physician/Specialty*: MARIAA Liriano MD/cardiology Reason for Consult*: Patient with a prolonged episode of chest pain Requesting Physician: Dr. Rome Kaur Attending Physician: Rome Kaur MD Primary Care Provider: Karen Gay MD History of Present Illness History of Present Illness Steven Ohara is a 73 year old male with no significant past medical history, presenting with the prolonged episode of chest pain. This patient apparently has been his baseline state of health up until 430 this morning when he had an episode of squeezing type of chest pain in the mid substernal region, radiating across the chest, to the neck, to the left shoulder and the left arm. Intensity of the pain was 9/10. Patient took 1 sublingual nitro. The pain gradually subsided in an hour or so. At the time of my examination, he is pain-free. He has some associated nausea and sweating. No palpitations, dizziness or syncopal episodes. Patient had 2 more loose similar episodes of chest pains in the past. The first episode was approximately 2 years ago. He had a Myocardial perfusion imaging at that time. He was found to have a small area of possible infarct to the licha- infarction ischemia in the distribution of the right coronary artery. He was placed on sublingual nitro since then. He had 1 more episode of chest pain prior to the current episode requiring sublingual nitro. In between these episodes, he been having some fluttery feeling in the chest and discomfort but never had to take any sublingual nitro. Over the last 2 years, even experiencing shortness of breath and easy fatigability. He also has a history of [id number] history of smoking abuse which he quit 4 years ago. History of COPD Currently he smokes marijuana for pain relief. No alcohol abuse or substance abuse. No history for hypertension, diabetes or dyslipidemia. No significant family history for atherosclerotic heart diseas Review of Systems 2 Narrative: CONSTITUTIONAL: No fever or chills. [] EYES: No blurring of vision or other visual disturbances lately. [] ENT: No hoarseness of voice, auditory disturbances or sore throat. CARDIOVASCULAR: As mentioned above. RESPIRATORY: No significant cough. GASTROINTESTINAL: No hematemesis or melena. GENITOURINARY: No dysuria or hematuria. INTEGUMENTARY: No skin rashes or history of skin cancer. NEURO: No transient ischemic attacks or amaurosis. PSYCHIATRIC: No history of psychosis or major depression. HEMATOLOGIC: No bleeding disorders or significant anemia. ENDOCRINE: No history of polyuria or polydipsia. MUSCULOSKELETAL: Has been having a lots of back pains and neck pain ALLERGY/IMMUNOLOGY: As mentioned above. Medications/Allergies Home Medications Medication Instructions Recorded Confirmed Last Taken Type acetaminophen 500 mg tablet 1,000 mg PO Q6H PRN Pain 12/16/21 01/17/24 12/16/21 History aspirin 81 mg tablet,delayed 81 mg PO QAM 01/19/22 01/17/24 01/19/22 History release nitroglycerin 0.4 mg sublingual 0.4 mg sublingual Q5M PRN Chest 01/19/22 01/17/24 01/17/24 History tablet (Nitrostat) Pain Allergies Allergy/AdvReac Type Severity Reaction Status Date / Time No Known Allergies Allergy Verified 01/17/24 05:44 Current Medications Generic Name Dose Route Start Last Admin Trade Name Freq PRN Reason Stop Dose Admin Heparin Sodium/Sodium Chloride 25,000 unit in 500 mls @ 0 mls/hr 01/17/24 08:15 01/17/24 08:47 Heparin Drip IV 14.09 unit/kg/hr CONT LUIS 23 mls/hr Administration Protocol Per Protocol PFSH Acute 2 PFSH: Medical History COPD (chronic obstructive pulmonary disease) Surgical History History of hernia surgery History of spinal fusion Family History Other Alzheimer's dementia Cancer Social History Smoking and tobacco/nicotine status: former use of tobacco/nicotine Alcohol intake: current Alcohol intake frequency: 0-2 Drinks per Day Substance/Drug Use: current Substance/Drug use type: Marijuana Vitals/I&O/Wt Last Vital Signs Temp 98.0 F 01/17/24 05:37 Pulse 64 01/17/24 09:15 Resp 14 01/17/24 06:45 BP 114/74 01/17/24 09:15 Pulse Ox 96 01/17/24 09:15 O2 Del Method Room Air 01/17/24 09:05 Weight last 48 hrs Weight 180 lb Physical Exam 2 Narrative: GENERAL: The patient is alert and oriented times three. Not in any acute distress. HEENT: No significant pallor, icterus or lymphadenopathy.Oral cavity: There are no mucous membrane lesions. NECK: Trachea appears to be central. No masses noted. No JVD or thyromegaly appreciated. RESPIRATORY: Chest is symmetrical. No intercostals muscle retraction or any accessory muscle activation. There is no chest wall tenderness. Breath sounds are heard bilaterally. No rales or rhonchi heard. No evidence of any consolidation. BREASTS: Deferred. HEART: The heart sounds are normal. No S3 or S4. No significant murmurs. No pericardial rub ABDOMEN: No vessel pulsations or distention. No tenderness. No organomegaly appreciated. Bowel sounds are normally heard. : Deferred. RECTAL: Deferred. LYMPHATIC: No lymphadenopathy noted in the neck. EXTREMITIES: No edema or cyanosis. No clubbing. MUSCULOSKELETAL: No acute joint deformities or swelling SKIN: There are no significant rashes or ecchymosis NEUROPSYCHIATRIC: The patient is alert and oriented x3. Appears to be in a good mood. No tremors or rigidity noted. Data 01/17/24 05:30 01/17/24 05:30 Other Labs: Laboratory Last Values WBC 12.11 10^3/uL (3.29-11.43) H 01/17/24 05:30 RBC 4.81 10^6/uL (3.85-5.65) 01/17/24 05:30 Hgb 15.00 g/dL (11.27-16.99) 01/17/24 05:30 Hct 44.7 % (37-53) 01/17/24 05:30 MCV 92.9 fl (82-101) 01/17/24 05:30 MCH 31.2 pg (27-33) 01/17/24 05:30 MCHC 33.6 g/dL (30-55) 01/17/24 05:30 RDW 12.2 % (12.1-15.1) 01/17/24 05:30 Plt Count 252 10^3/cmm (157-399) 01/17/24 05:30 MPV 9.9 fL (7.4-10.4) 01/17/24 05:30 Neut % (Auto) 43.0 % 01/17/24 05:30 Lymph % (Auto) 44.3 % 01/17/24 05:30 [place] % (Auto) 9.9 % 01/17/24 05:30 Eos % (Auto) 1.9 % 01/17/24 05:30 Baso % (Auto) 0.5 % 01/17/24 05:30 Neut # (Auto) 5.20 10^3/uL (1.8-7.7) 01/17/24 05:30 Lymph # (Auto) 5.4 10^3/uL (0.8-4.8) H 01/17/24 05:30 [place] # (Auto) 1.2 10^3/uL (0.2-0.9) H 01/17/24 05:30 Eos # (Auto) 0.2 10^3/uL (0.0-0.8) 01/17/24 05:30 Baso # (Auto) 0.1 10^3/uL (0.0-0.1) 01/17/24 05:30 Nucleated RBC % (auto) 0 % 01/17/24 05:30 Nucleated RBCs # 0.0 /100WBC 01/17/24 05:30 PT 13.30 SECONDS (12.1-14.9) 01/17/24 08:28 INR 0.98 (0.8-1.2) 01/17/24 08:28 APTT 26.0 SECONDS (23.9-36.7) 01/17/24 08:28 Sodium 135 mmol/L (136-145) L 01/17/24 05:30 Potassium 4.3 mmol/L (3.5-5.1) 01/17/24 05:30 Chloride 99 mmol/L (98-107) 01/17/24 05:30 Carbon Dioxide 23 mmol/L (22-29) 01/17/24 05:30 Anion Gap 17.3 (5-19) 01/17/24 05:30 BUN 24 mg/dL (8-23) H 01/17/24 05:30 Creatinine 0.9 mg/dL (0.7-1.2) 01/17/24 05:30 GFR Calculation Not Reportable 01/17/24 05:30 Glucose 117 mg/dL (65-115) H 01/17/24 05:30 Calculated Osmolality 285 mOsm/kg (285-295) 01/17/24 05:30 Calcium 8.8 mg/dL (8.5-10.5) 01/17/24 05:30 Magnesium 2.2 mg/dL (1.7-2.3) 01/17/24 05:30 Total Bilirubin 0.3 mg/dL (0.15-1.2) 01/17/24 05:30 AST 16 U/L (0-40) 01/17/24 05:30 ALT 14 U/L (0-41) 01/17/24 05:30 Alkaline Phosphatase 96 U/L (40-130) 01/17/24 05:30 Troponin T Baseline 12 ng/L (0-15) 01/17/24 05:30 Troponin T 120 Minute 11.20 ng/L (0-15) 01/17/24 07:02 Delta Troponin T -0.80 ABS# (0-10) L 01/17/24 07:02 Total Protein 6.5 g/dL (6.6-8.7) L 01/17/24 05:30 Albumin 4.2 g/dL (3.5-5.2) 01/17/24 05:30 Globulin 2.3 g/dL (1.3-4.6) 01/17/24 05:30 TSH 2.12 uIU/mL (0.27-4.20) 01/17/24 05:30 EKG 1: My Interpretation: Sinus bradycardia with a normal ST Ts. Heart rate of 53 bpm. Other data: Myocardial perfusion imaging on 02/04/2022 1. 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 2. Normal LV systolic function. A&P Assessment and plan (1) Chest pain: Patient with chest pain may assess unstable anginal pattern. Hemodynamically he is stable. EKG is unremarkable. No evidence of myocardial injury so far. The patient may be treated with subcu Lovenox, aspirin and statin. Because of the bradycardia, I may hold off on any beta-blockers. Patient has been having some amount of dyspnea on exertion and easy fatigability. Coronary ischemia is a possibility. COPD also could be a contributing factor. Qualifiers: Chest pain type: precordial pain Qualified Code(s): R07.2 - Precordial pain (2) Abnormal nuclear stress test: Suggestive of myocardial scarring in the distribution of the right coronary artery with some areas of licha-infarction ischemia To further evaluate the coronary status, patient may benefit from a cardiac catheterization. 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 Management as per the primary. Plan Other problems are Slightly elevated white cell count-? Acute phase reactant Slightly elevated BUN-possibly related to mild dehydration An echocardiogram would be helpful to evaluate LV function and rule out any other pathology. Patient may require a cardiac catheterization to further evaluate the coronary status and decide on further management. This will be decided after reviewing the echocardiogram. Thank you for the opportunity to evaluate this patient and make these recommendations Consult Attestations 2 Medical Necessity Statement: Patient requires continued hospital stay for close monitoring and further management Coding Level of Care Code 48324 Diagnoses Precordial pain R07.2 Chest pain type: precordial pain Abnormal nuclear stress test R94.39 Chronic obstructive pulmonary disease, unspecified COPD type J44.9 COPD type: unspecified COPD Neck pain M54.2
--- NOTE | 2024-01-17 11:46 | ECG_ITS ---
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 Measurements Intervals [place] Rate: 57 P: 77 MS: 162 QRS: 80 QRSD: 93 T: 77 QT: 438 QTc: 427 Interpretive Statements SINUS BRADYCARDIA Compared to ECG 01/17/2024 07:43:50 No significant changes Electronically Signed On 01-17-2024 23:39:56 CDT by Eli Liriano M.D. [id number]
[2024-01-17 11:54] LABS: Troponin 5 6HR 8.66 ng/L (0-15)
[2024-01-17 12:05] LABS: Troponin 5 6HR Delta -3.34 ng/L (0-12)
--- NOTE | 2024-01-17 12:38 | USCV_ITS ---
Steven Ohara Age: 73 Gender: M : 1950 Exam Date: 01/17/2024 14:35 Ordering Phys: Rome Kaur MD Technologist: Exam Location: [facility] [place] Indication: cp sob BP: 120 / 70 HR: 52 Rhythm: Sinus Technical Quality: Adequate MEASUREMENTS (Male / Female) Normal Values 2D ECHO LV Diastolic Diameter PLAX 3.8 cm 4.2 - 5.9 / 3.9 - 5.3 cm IVS Diastolic Thickness 1.0 cm 0.6 - 1.0 / 0.6 - 0.9 cm IVS Systolic Thickness 1.8 cm LVPW Diastolic Thickness 1.2 cm 0.6 - 1.0 / 0.6 - 0.9 cm LVPW Systolic Thickness 2.0 cm LVOT Diameter 1.9 cm LV Ejection Fraction 2D Teich 64.1 % LV Ejection Fraction MOD 4C 73.0 % LV Ejection Fraction MOD 2C 64.6 % LV Ejection Fraction 2C AL 65.8 % LA Diameter 4.3 cm RA Systolic Volume 4C AL 40.2 ml RA Systolic Volume 4C MOD 38.5 ml Aorta at Sinotubular Diameter 3.6 cm DOPPLER AV Peak Velocity 104.0 cm/s LVOT Peak Velocity 84.0 cm/s AV Area Cont Eq vti 2.1 cm squared AV Area Cont Eq pk 2.2 cm squared MV Peak Velocity 72.0 cm/s MV Area PHT 3.5 cm squared Mitral E to A Ratio 0.8 TR Peak Velocity 156.0 cm/s TR Peak Gradient 9.7 mmHg TV Peak E Velocity 152.0 cm/s Right Atrial Pressure 3.0 mmHg Pulmonary Artery Systolic Pressu 12.7 mmHg FINDINGS Left Ventricle Normal left ventricular size and systolic function, EF 73%. Relative hypokinesis of the basal inferior wall segment Right Ventricle Possibly of normal size and ejection fraction Right Atrium Possibly of normal size Left Atrium Normal size Mitral Valve Thickened mitral valve. Aortic Valve No gross abnormalities noted Tricuspid Valve No gross abnormalities noted Pulmonic Valve Pulmonic valve not well visualized. Pericardium Normal pericardium without effusion. Aorta Normal ascending aorta dimension. IVC Normal inferior vena cava. CONCLUSIONS Normal left ventricular size and systolic function, EF 73%. Relative hypokinesis of the basal inferior wall segment. Normal cardiac chamber sizes. Minimally thickened mitral leaflets. There is no pericardial effusion. There are no intracardiac masses. Technically difficult study because of the poor parasternal windows Dr Eli Liriano MD FACC (Electronically Signed) Final Date: 17 January 2024 21:08 S
[2024-01-17] MEDS: pantoprazole DR 40 mg Tablet PO (12:47)
[2024-01-17] MEDS: atorvastatin 40 mg Tablet PO (12:47)
[2024-01-17] MEDS: acetaminophen 325 mg Tablet 650 MG PO (13:07)
[2024-01-17 16:46] LABS: Partial Thromboplastin Time 148.6 SECONDS (23.9-36.7)
[2024-01-17 23:56] LABS: Partial Thromboplastin Time 97.3 SECONDS (23.9-36.7)
[2024-01-18] VITALS (38 sets, daily range): BP systolic 91–141; BP diastolic 61–83; PULSE 56–91; RESP 12–24; TEMP 36.4–36.7; O2SAT 92–97; BMI 23.3
[2024-01-18 05:53] LABS: Basophils # 0.1 10^3/uL (0.0-0.1); Basophils % 0.8 %; Eosinophils # 0.1 10^3/uL (0.0-0.8); Eosinophils % 1.8 %; Hematocrit 46.7 % (37-53); Lymphocytes % 25.3 %; Mean Corpuscular HGB Conc 33.8 g/dL (30-55); Mean Corpuscular Hemoglobin 31.9 pg (27-33); Mean Corpuscular Volume 94.3 fl (82-101); Mean Platelet Volume 9.8 fL (7.4-10.4); Monocytes # 0.8 10^3/uL (0.2-0.9); Monocytes % 9.6 %; Neutrophils # 4.91 10^3/uL (1.8-7.7); Neutrophils % 62.1 %; Nucleated Red Blood Cells % 0 %; Platelet Count 236 10^3/cmm (157-399); Red Blood Count 4.95 10^6/uL (3.85-5.65); Red Cell Distribution Width 12.6 % (12.1-15.1)
[2024-01-18] MEDS: sodium chloride 0.9% 1,000 ML 50 ML IV (06:02)
[2024-01-18 06:26] LABS: Alanine Aminotransferase 12 U/L (0-41); Albumin Level 3.9 g/dL (3.5-5.2); Alkaline Phosphatase 82 U/L (40-130); Anion Gap 15.4 (5-19); Aspartate Amino Transferase 15 U/L (0-40); Blood Urea Nitrogen 13 mg/dL (8-23); Calcium 8.6 mg/dL (8.5-10.5); Carbon Dioxide 22 mmol/L (22-29); Chloride 107 mmol/L (98-107); Creatinine Clr Calc Pharmacy 94.4015; Globulin 2.4 g/dL (1.3-4.6); Glucose 102 mg/dL (65-115); Magnesium 2.2 mg/dL (1.7-2.3); Osmolality Calculated 290 mOsm/kg (285-295); Potassium 4.4 mmol/L (3.5-5.1); Sodium 140 mmol/L (136-145); Total Bilirubin 0.6 mg/dL (0.15-1.2); Total Protein 6.3 g/dL (6.6-8.7)
[2024-01-18 06:29] LABS: Chol HDL Ratio 3.08 mg/dL (1.0-5.00); Cholesterol 200 mg/dL (0-200); HDL Cholesterol 65 mg/dL (60-100); LDL Cholesterol Calculated 118 mg/dL (50-129); LDL HDL Ratio 1.82 RATIO (0.00-3.22); Triglycerides 84 mg/dL (0-150)
[2024-01-18] MEDS: pantoprazole DR 40 mg Tablet PO (07:58)
[2024-01-18] MEDS: diphenhydrAMINE 50 mg Capsule PO (07:59)
[2024-01-18] MEDS: aspirin 325 mg EC Tablet PO (07:59)
[2024-01-18] MEDS: atorvastatin 40 mg Tablet PO (07:59)
--- NOTE | 2024-01-18 08:30 | XACV_ITS ---
Exam Room: [facility] Ht: 185 cm Wt: 80 kg BSA: 2.03 m2 Gender: Male : 1950 Any Known Allergies: No known allergies Exam Priority: Routine Procedure(s): Procedure Description: Diagnostic procedure Procedure Description: PCI procedure Procedure Description: Left Heart Catheterization Procedure Description: Drug Eluting Coronary Stent Procedure Description: PTCA Procedure Description: Miscellaneous Procedure Description: ACT Procedure Description: Coronary Angiography Procedure Description: Pressure Wire Heri PRECIADO; Diagnostic Cath Status: Urgent Diagnostic Findings * Left main is a medium to large caliber vessel with no significant stenotic lesions. * The left anterior descending artery is a medium to large caliber elongated tortuous vessel appears to wrap around the LV apex. Right after the first septal computer systems support specialist, the artery was found to have around 60 to 70% tubular narrowing. Right around the origin of the second diagonal branch, there was a 40% narrowing. Following the second diagonal branch, there was a tubular 30 to 40% narrowing. The first and second diagonal branches were found to have minimal narrowing near the ostium. * The intermedius artery (high diagonal) vessel was found to have minimal intimal irregularities proximally. Then the artery appears to bifurcate. Minimal intimal irregularities were noted at the mid segment of these arteries with no significant stenotic lesions. * The circumflex artery is a medium caliber nondominant vessel, Significantly tortuous at the proximal segment was found to have minimal intimal irregularities. No significant stenotic lesions were noted. * The right coronary artery is a medium caliber dominant vessel and was found to have around 40% narrowing at the origin of the first RV branch. No other significant stenotic lesions were noted. The PDA branch is a relatively small caliber vessel. PCI Status: Urgent Interventional Findings * Procedure detail: Diagnostic images were obtained through right radial artery access. Post diagnostic cath, we were not able to advance a J-wire through radial artery. Hand-injection showed severe spasm of the radial artery. Despite of administering more nitro, spasm did not resolve. We switched access to right common femoral artery. We engaged left main artery with XB 3.5 guide catheter. IV heparin was administered to maintain anticoagulation. After normalization, IFR wire was advanced into the distal vessel. iFR value of 0.88 was obtained that was ischemic. We proceeded with PCI of proximal LAD. Stenosis was predilated with 3.5 x 12 mm semicompliant balloon. This was followed by placement of 4.5 x 18 mm resolute Alicia drug-eluting stent. We then postdilated the stent with 4.5 x 12 mm NC balloon. At this time final angiogram was performed that showed excellent stent expansion, no residual stenosis and SHARATH-3 flow. Guidewire and guide catheter were removed. Patient left the Automotive Title Clerk in a stable condition.. * Proximal Left Anterior Descendin% stenosis treated with a AB TREK 3.50X12 RX BALLOON, TAMIKO R ALICIA 4.5X18 ASAD, and TAMIKO PEDROZA EUPHORA RX [id number] BALLOON. 0% residual stenosis, SHARATH: 3 flow. Conclusions 1. 73-year-old white male with no significant past medical history, was admitted to the hospital with the symptoms of unstable angina. Patient underwent left heart catheterization with a left and right coronary angiogram today. The findings are as follows. 2. 1. Moderate to large sized left main artery with no significant lesions.2. Medium to large caliber, elongated and tortuous left-sided descending artery, wrapping around the LV apex. 60 to 70%, tubular mid LAD lesion. Mild mid to distal LAD lesions.3. Minimal disease in the intermedius artery 4. Tortuous circumflex artery with no significant lesions 5. Around 40% lesion in the right coronary artery at the takeoff of the RV branch. 6. LVEDP of 8 mmHg. 3. In view of the patient's presenting symptoms of unstable angina, he does not be appropriate to do an IFR of the mid LAD lesion. I discussed and reviewed the cardiac catheterization data with the Dr. Ferrer. Dr. Ferrer concurred with this plan and took over further management of this patient. The IFR was found to be significant. Patient underwent PCI of the LAD lesion. 4. s/p successful revascularization with 1 stent. 5. Proximal Left Anterior Descending was treated with a Balloon, Drug Eluting Stent, and Balloon. Recommendations * Dual antiplatelet therapy with aspirin and plavix for atleast 1 year. * High intensity statin therapy. * Outpatient cardiology follow up in 4 weeks. Interventional RX Recommendation: PCI w/o planned CABG Anticoagulation: Heparin LV EDP: 8 mmHg Left Ventriculography Findings: * LV gram was not performed because of the concern about dye overload. The LVEDP was 8 mmHg. Pressures Phase:Rest AO : 82 / 62 ( 73 ) @ 10:23:00 AM 91 / 66 ( 78 ) @ 10:26:00 AM 114 / 68 ( 89 ) @ 10:36:00 AM 115 / 69 ( 89 ) @ 10:36:00 AM 116 / 66 ( 88 ) @ 11:05:00 AM LV : 126 / -14 / 8 @ 10:36:00 AM 125 / -12 / 9 @ 10:36:00 AM Valves Phase:DefaultPhase AV : 10.0 @ 10:36:39 AM AV Mean Gradient: 10.0 @ 10:36:39 AM Clinical Evaluation EBL: 5mL-10mL Procedural Details Procedure Consent Obtained. Pre-Procedure Time Out. Identified patient by full name and date of as verbalized by the patient/guarantor. Does the consent match the physician's order: Yes. Accurate & Complete Informed Consent: Yes. Inpatient/Outpatient History & Physical on Chart: Yes. If H&P is completed, is and addenduem needed: No; If yes, is the addendum complete: N/A. Visualize and Verify Site with Patient/Guarantor: N/A. Relevant Radiology Images available: Yes. Pre-op teaching completed and patient verbalized understanding. The risks, benefits, and alternatives of sedation and/or procedure were discussed by physician. The patient agrees to continue. Procedure started. [facility] Clinical Fraility Score: 3: Managing Well. Automotive Title Clerk Indications: Worsening Angina. Chest Pain Symptom Assessment: Typical Angina Symptoms. Correct patient, site and procedure confirmed by cath team. Current diagnosis: Chest Pain. PERRLA. Strong, equal hand historical site guide bilaterally. Lungs clear x 5 lobes. IV Site on Arrival: 20 gauge in the right anticubital. IV Fluids: 0.9% NaCl at KVO. 0 mL infused prior to cathodic protection technician. Oxygen started at 2liters/min via nasal canula. right groin was prepped with chloroprep then draped in the usual sterile fashion. right radial was prepped with chloroprep then draped in the usual sterile fashion. Baseline sample Acquired. HR: 63 BPM. Physician arrived. Physician scrubbed in. Immediate Pre-Procedure Time Out. Correct Patient: Yes; Correct Procedure: Yes; Correct Site: Yes; Correct Patient Position: Yes; Correct Supplies: Yes; Dried Flammable Prep: Yes; Blood Products Available: N/A;. Lidocaine 1% infiltrated to the right radial. Arterial access obtained. Wire unable to advance. Wire and needle removed. Lidocaine 1% infiltrated to the right groin. Arterial access obtained. A 5 andorran Ronald catheter in over wire. Multiple views taken of left coronary artery. Catheter redirected to the RCA. Catheter removed over the exchange wire. Multiple views taken of right coronary artery. EDP Sample taken: LV 126/-15,8; HR: 67 BPM; SpO2: 100%. Pullback taken: LV 125/-13,9; AO 114/68(89); Mean: 10mmHg, Peak to Peak: 10mmHg, SEP: 16sec/min; HR: 68 BPM; SpO2: 100%. Catheter removed over the exchange wire. Dr. Liriano scrubbed out. Dr. Ferrer scrubbed in. 6 andorran XB 3.5 guide catheter was inserted over the wire. Guide catheter out. Contrast hand injected through the sheath. Contrast hand injected through the sheath. A TR Band was successful obtaining hemostatsis at the Right Radial artery insertion site. Lidocaine 1% infiltrated to the right groin. Arterial access obtained with micropuncture set. Wire unable to advance. Wire and needle removed. Manual pressure held on access site. Lidocaine 1% infiltrated to the right groin. 6 andorran XB 3.5 guide catheter was inserted over the wire. IFR guidewire was advanced through the guide catheter to lesion in the prox LAD. IFR results: 0.88. ACT drawn. Results 224 seconds. Therapeutic limits - pre-heparin administration 90-150 seconds and monitoring heparin during a vascular procedure >250 seconds. Runthrough guidewire was advanced through the guide catheter to lesion in the prox LAD. IFR wire out. Inflation number : 1 A AB TREK 3.50X12 RX BALLOON was prepped and advanced across the Prox LAD , then inflated to 8 NESTOR for 0:11 seconds. Balloon out. Results checked. Inflation Number : 2 A TAMIKO Pittman ALICIA 4.5X18 ASAD -Lot Number# _[id number] EXP: 02/14/2024 was prepped and advanced across the Prox LAD. The stent was deployed at 12 NESTOR for 0:21 seconds. Stent balloon out over wire. Results checked. Inflation number : 3 A TAMIKO PEDROZA EUPHORA RX [id number] BALLOON was prepped and advanced across the Prox LAD , then inflated to 18 NESTOR for 0:19 seconds. Balloon out. Results checked. Wire out. Results checked. ACT drawn. Results out of range high seconds. Therapeutic limits - pre-heparin administration 90-150 seconds and monitoring heparin during a vascular procedure >250 seconds. Guide catheter out. A Right femoral angiogram was performed to determine safe placement of closure device. Lidocaine 1% infiltrated to the right groin. ACT drawn. Results 266 seconds. Therapeutic limits - pre-heparin administration 90-150 seconds and monitoring heparin during a vascular procedure >250 seconds. A Angio-Seal VIP ([place]) was successful obtaining hemostatsis at the Right Femoral artery insertion site. Post Procedure: Pulses reassessed and unchanged. PERRLA. Strong, equal hand historical site guide bilaterally. No VTE prophylaxis required. Medication's Wasted: Nitro = 49.4 mcg. Medication's Wasted: Heparin = 2000 units. Medication's Wasted: Verapamil = 5 mg. Medication's Wasted: Other = Versed 1 mg. Vital chart was stopped. Total IV fluids: 335 mL. Post-op diagnosis: Stent to LAD. Complications: None. Estimated blood loss: 5mL-10mL. Responsiveness - Normal response to verbal stimuli; alert and oriented, PERRLA. Airway - Unaffected, no intervention required; spontaneous ventilation. Circulation: W/N/L, pulses unchanged. Nausea/Vomiting: No. Procedure completed. Patient transferred by bed to ICU. Access Site Site: Right Radial artery Sheath Size: 6 Fr Hemostasis Method: TR Band Hemostasis Success: Successful Site: Right Femoral artery Sheath Size: 6 Fr Hemostasis Method: Angio-Seal VIP ([place]) Hemostasis Success: Successful Procedure Medications Start: 9:09 AM Stop: 9:09 AM Medication: Versed Amount: 1 mg Route: I.V. Start: 9:10 AM Stop: 9:10 AM Medication: Fentanyl Amount: 50 mcg Route: I.V. Start: 9:19 AM Stop: 9:19 AM Medication: Nitrogylcerin Amount: 200 mcg Route: I.A. Start: 9:23 AM Stop: 9:23 AM Medication: Heparin Amount: 5000 units Route: I.V. Start: 9:24 AM Stop: 9:24 AM Medication: 0.9% Saline Amount: 250 ml Route: I.V. bolus Start: 9:38 AM Stop: 9:38 AM Medication: Fentanyl Amount: 25 mcg Route: I.V. Start: 9:43 AM Stop: 9:43 AM Medication: Versed Amount: 1 mg Route: I.V. Start: 9:44 AM Stop: 9:44 AM Medication: Nitrogylcerin Amount: 200 mcg Route: I.A. Start: 9:55 AM Stop: 9:55 AM Medication: Heparin Amount: 2000 units Route: I.V. Start: 10:08 AM Stop: 10:08 AM Medication: Fentanyl Amount: 25 mcg Route: I.V. Start: 10:09 AM Stop: 10:09 AM Medication: Heparin Amount: 2000 units Route: I.V. Start: 10:25 AM Stop: 10:25 AM Medication: Plavix Amount: 600 mg Route: P.O. Start: 10:18 AM Stop: 10:18 AM Medication: Nitrogylcerin Amount: 200 mcg Route: I.A. I, the attending physician, have reviewed and verified all procedure medications. Yes, all medications given per verbal order History/Risk Factors Hypertension: No Dyslipidemia: No Peripheral Arterial Disease (PAD): No Myocardial Infarction (LA): No Obesity: No Renal Disease: No Tobacco Use: Former Prior Interventions PCI: No CABG: No Valve Surgery: No Report Signatures Interventional Workflow Finalized by Jake Ferrer MD on 01/22/2024 01:35 PM Diagnostic Workflow Finalized by Dr Eli Liriano MD [facility] on 01/19/2024 09:13 AM
--- NOTE | 2024-01-18 09:00 | W.PM.OPSUD ---
Surgery/Procedure H&P Update DATE OF PROCEDURE: January 18, 2024 DATE H&P PERFORMED: 01/17/24 H&P UPDATE INFORMATION: I have reviewed H&P completed within last 30 days, I have examined patient prior to procedure and No changes to prior documentation PREOP DIAGNOSIS: Atherosclerotic heart disease PRIMARY INDICATION FOR PROCEDURE: Unstable angina, abnormal stress test PLANNED PROCEDURE: Operation Date: 01/18/24 08:30 Proposed Procedures p Cardiac Catheterization c Poss PCI(Not Applicable) - Eli Liriano MD PATIENT REASSESSED PRIOR TO SEDATION, WITH NO CHANGE NOTED: Yes PHYSICAL EXAM: alert, oriented x 3, clear to auscultation bilaterally and regular rate & rhythm AIRWAY EVAL/ANESTHESIA PLAN: normal airway, see other exam findings, ASA III, Monitored Anesthesia, Local Anesthesia, Risks, benefits & alternatives of sedation and/or procedure discussed and Patient agrees to continue as planned
--- NOTE | 2024-01-18 09:12 | PC.CHAP ---
Pastoral Care Encounter/Spiritual Assessment Type of Contact [] Declined tube station attendant visit [] Patient/Family/Request visit [] Outpatient visit [] Follow-up visit [] Physician referral [] Code/Alert [x] Routine visit [] Staff referral [] Actively dying [] Patient sleeping [] Family support [] [] Out of room [] Palliative care [] [] Receiving care in room [] Pre-surgical visit [] Trauma [] Long length of stay [] ICU visit [] Other: Relational/Emotional Strength [x] Patient feels connected with others/family/visitors/staff [] Distress [] Loneliness/isolation [] Abandonment Spirituality of Patient [x] Person of Wendi [] Attends Cheondoism of their Wendi [x] Believes in Prayer [] Reads Bible or Lutheran materials [] There are Spiritual issues to be addressed Outside Solar Sales Consultant Interventions [x] Prayer [x] Active listening [] Non-anxious presence [x] Spiritual/emotional support [] Crisis/trauma care [] Spiritual counseling [] Bereavement support [] Provided bereavement packet [] Provided Bible/devotional materials [] Provided toy/stuffed animal, coloring book to patient or family member [] Provided Communion [] Anointing/[place] [] Salvation [x] Completed spiritual assessment [] Other: Impact on Illness or Injury [] Angry [] Fearful [] Anxious [] Often cries [] Exhaustion [] Unable to work [] Unable to attend christian [] Unable to walk/stand [] Unable to read [] Unable to drive [] Unable to eat/drink [] Unable to sleep [] Unable to be with family [] Patient intubated [] Other: Summary Time spent with patient 5 min
--- NOTE | 2024-01-18 09:13 | PC.NURSE ---
Report given to ICU Talked to MILTON Villalobos and hand off report provided about pt's condition cardiac and respiratory goldman. all belongings sent with pathology laboratory technologist staff.
--- NOTE | 2024-01-18 10:07 | SUR.PHASEII ---
Patient discharged home at 1000.
--- NOTE | 2024-01-18 10:43 | P.PN_ITS ---
Subjective 2 Subjective: No chest discomfort overnight. Underwent angiogram this morning, and received an LAD stent. Medications: Reviewed: Yes Vitals/I&O/Wt Last Vital Signs Temp 97.5 F L 01/18/24 08:29 Pulse 58 L 01/18/24 08:29 Resp 18 01/18/24 08:29 BP 125/81 01/18/24 08:29 Pulse Ox 97 01/18/24 08:29 O2 Del Method Room Air 01/18/24 08:29 01/17/24 01/18/24 01/18/24 22:59 06:59 14:59 Intake Total 1163.483 / 1192.616 267.384 / 1460.000 Balance 1163.483 / 1192.616 267.384 / 1460.000 Weight last 48 hrs Weight 80.059 kg Weight 81.647 kg Weight 81.647 kg Physical Exam 2 Narrative: General exam is a white male no distress, denies chest discomfort Neck is supple no lymphadenopathy thyromegaly Cardiovascular regular rate and rhythm, heart sounds distant, no obvious murmur. No S3 or S4 Lungs clear but with diminished breath sounds bilaterally. No wheezing or crackles Abdomen is soft nontender positive bowel sounds. No obvious organomegaly. Surgical scars are noted Extremities no cyanosis, or edema, cap refill brisk. Data 01/18/24 05:39 01/18/24 05:39 A&P Assessment and plan (1) Chest pain: Patient presents with history of chest discomfort. 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 No follow-up occurred after the stress test according to the patient. He does have significant tobacco history. Underwent angiogram this morning. LAD stent was performed. Patient was loaded with Plavix. Continue 75 mg daily. Continue aspirin 81 mg daily Continue Lipitor 40 mg daily Echo was performed and demonstrated preserved EF Hold off on beta-annemarie currently secondary to bradycardia CBC, BMP in the morning Hydration Qualifiers: Chest pain type: precordial pain Qualified Code(s): R07.2 - Precordial pain (2) Palpitations: Patient with history of palpitations. Check TSH and magnesium Echocardiogram as above (3) COPD (chronic obstructive pulmonary disease): Patient with history of COPD He has stopped tobacco, but is smoking THC. He has not had any active wheezing in quite some time DuoNeb as needed Qualifiers: COPD type: unspecified COPD Qualified Code(s): J44.9 - Chronic obstructive pulmonary disease, unspecified Plan Full code currently On heparin for DVT prophylaxis prior to procedure. Held postprocedure, for removal of sheath. Start DVT prophylaxis tomorrow again if patient stays. Attestations 2 Medical Necessity Statement*: Needs continued hospitalization for close monitoring following coronary stenting of LAD Diagnoses Precordial pain R07.2 Chest pain type: precordial pain Palpitations R00.2 Chronic obstructive pulmonary disease, unspecified COPD type J44.9 COPD type: unspecified COPD Time Spent (min) 26
--- NOTE | 2024-01-18 11:01 | PC.NURSE ---
arrived from laboratory machinist, ao x4
[2024-01-18] MEDS: acetaminophen 325 mg Tablet 650 MG PO (20:41)
--- NOTE | 2024-01-18 21:39 | PM.PN ---
Subjective Subjective: Patient underwent a cardiac catheterization today. He was found to have hemodynamically significant lesion in the mid LAD. He underwent a PCI of this lesion. Currently remaining stable with no recurrence of chest pain. Medications: Medication Review Details: Current Medications Acetaminophen (Acetaminophen 325 Mg Tablet) 650 mg PO Q6H PRN PRN Reason: Mild/Mod Pain Or Temp >/= 101 Last Admin: 01/18/24 20:41 Dose: 650 mg Al Hydrox/Mg Hydrox/Simethicone (Xpbf-Exr-Jnvnqkcgo-Sam 30 Ml Udc) 30 ml PO Q15M PRN PRN Reason: INDIGESTION Albuterol/Ipratropium (Ipratropium-Albuterol 3 Ml Neb) 3 ml INHALATION Q6H PRN PRN Reason: SHORTNESS OF BREATH Alprazolam (Alprazolam 0.5 Mg Tablet) 0.25 mg PO TID PRN PRN Reason: ANXIETY Aspirin (Aspirin 81 Mg Ec Tablet) 81 mg PO DAILY [facility] Atorvastatin Calcium (Atorvastatin 40 Mg Tablet) 40 mg PO DAILY [facility] Last Admin: 01/18/24 07:59 Dose: 40 mg Atropine Sulfate (Atropine 1 Mg/Ml Sdv 1 Ml) 0.5 mg IVP PRN PRN PRN Reason: Symptomatic bradycardia Clopidogrel Bisulfate (Clopidogrel 75 Mg Tablet) 75 mg PO DAILY [facility] Fentanyl (Fentanyl 50 Mcg/Ml Inj 2ml) 50 mcg IVP PRN PRN PRN Reason: PAIN Sodium Chloride (Sodium Chloride 0.9%) 1,000 mls @ 50 mls/hr IV .Q20H ONE Stop: 01/19/24 03:29 Last Admin: 01/18/24 06:02 Dose: 50 mls/hr Magnesium Hydroxide (Magnesium Hydroxide 30 Ml Udc) 30 ml PO DAILY PRN PRN Reason: CONSTIPATION Naloxone HCl (Naloxone 0.4 Mg/Ml Sdv) 0.1 mg IVP Q2M PRN PRN Reason: RESPIRATORY RATE < 8/MIN Nitroglycerin (Nitroglycerin 0.4 Mg Sublingual Tablet) 0.4 mg SUBLINGUAL Q5M PRN PRN Reason: CHEST PAIN Ondansetron HCl (Ondansetron 2 Mg/Ml Sdv 2 Ml) 4 mg IVP Q6H PRN PRN Reason: vomiting, or N/V if npo Pantoprazole Sodium (Pantoprazole Dr 40 Mg Tablet) 40 mg PO DAILY [facility] Last Admin: 01/18/24 07:58 Dose: 40 mg Temazepam (Temazepam 15 Mg Capsule) 15 mg PO BEDTIME PRN PRN Reason: INSOMNIA Vitals/I&O/Wt Last Vital Signs Temp 98.1 F 01/18/24 20:00 Pulse 66 01/18/24 21:18 Resp 24 H 01/18/24 20:30 BP 140/82 01/18/24 20:30 Pulse Ox 94 01/18/24 20:30 O2 Del Method Room Air 01/18/24 20:30 01/18/24 01/18/24 01/18/24 06:59 14:59 22:59 Intake Total 267.384 / 1460.000 200 / 200 Output Total 900 / 900 Balance 267.384 / 1460.000 200 / 200 -900 / -700 Weight last 48 hrs Weight 176 lb 8 oz Weight 180 lb Weight 180 lb Physical Exam Narrative: GENERAL: The patient is alert and oriented times three. Not in any acute distress. HEENT: No significant pallor, icterus or lymphadenopathy.Oral cavity: There are no mucous membrane lesions. NECK: Trachea appears to be central. No masses noted. No JVD or thyromegaly appreciated. RESPIRATORY: Chest is symmetrical. No intercostals muscle retraction or any accessory muscle activation. There is no chest wall tenderness. Breath sounds are heard bilaterally. No rales or rhonchi heard. No evidence of any consolidation. BREASTS: Deferred. HEART: The heart sounds are normal. No S3 or S4. No significant murmurs. No pericardial rub ABDOMEN: No vessel pulsations or distention. No tenderness. No organomegaly appreciated. Bowel sounds are normally heard. : Deferred. RECTAL: Deferred. LYMPHATIC: No lymphadenopathy noted in the neck. EXTREMITIES: No edema or cyanosis. No clubbing. MUSCULOSKELETAL: No acute joint deformities or swelling SKIN: There are no significant rashes or ecchymosis NEUROPSYCHIATRIC: The patient is alert and oriented x3. Appears to be in a good mood. No tremors or rigidity noted. Data 01/18/24 05:39 01/18/24 05:39 Other Labs: Laboratory Last Values WBC 7.90 10^3/uL (3.29-11.43) 01/18/24 05:39 RBC 4.95 10^6/uL (3.85-5.65) 01/18/24 05:39 Hgb 15.80 g/dL (11.27-16.99) 01/18/24 05:39 Hct 46.7 % (37-53) 01/18/24 05:39 MCV 94.3 fl (82-101) 01/18/24 05:39 MCH 31.9 pg (27-33) 01/18/24 05:39 MCHC 33.8 g/dL (30-55) 01/18/24 05:39 RDW 12.6 % (12.1-15.1) 01/18/24 05:39 Plt Count 236 10^3/cmm (157-399) 01/18/24 05:39 MPV 9.8 fL (7.4-10.4) 01/18/24 05:39 Neut % (Auto) 62.1 % 01/18/24 05:39 Lymph % (Auto) 25.3 % 01/18/24 05:39 [place] % (Auto) 9.6 % 01/18/24 05:39 Eos % (Auto) 1.8 % 01/18/24 05:39 Baso % (Auto) 0.8 % 01/18/24 05:39 Neut # (Auto) 4.91 10^3/uL (1.8-7.7) 01/18/24 05:39 Lymph # (Auto) 2.0 10^3/uL (0.8-4.8) 01/18/24 05:39 [place] # (Auto) 0.8 10^3/uL (0.2-0.9) 01/18/24 05:39 Eos # (Auto) 0.1 10^3/uL (0.0-0.8) 01/18/24 05:39 Baso # (Auto) 0.1 10^3/uL (0.0-0.1) 01/18/24 05:39 Nucleated RBC % (auto) 0 % 01/18/24 05:39 Nucleated RBCs # 0.0 /100WBC 01/18/24 05:39 PT 13.30 SECONDS (12.1-14.9) 01/17/24 08:28 INR 0.98 (0.8-1.2) 01/17/24 08:28 APTT 97.3 SECONDS (23.9-36.7) H 01/17/24 23:20 Sodium 140 mmol/L (136-145) 01/18/24 05:39 Potassium 4.4 mmol/L (3.5-5.1) 01/18/24 05:39 Chloride 107 mmol/L (98-107) 01/18/24 05:39 Carbon Dioxide 22 mmol/L (22-29) 01/18/24 05:39 Anion Gap 15.4 (5-19) 01/18/24 05:39 BUN 13 mg/dL (8-23) 01/18/24 05:39 Creatinine 0.7 mg/dL (0.7-1.2) 01/18/24 05:39 GFR Calculation Not Reportable 01/18/24 05:39 Glucose 102 mg/dL (65-115) 01/18/24 05:39 Calculated Osmolality 290 mOsm/kg (285-295) 01/18/24 05:39 Calcium 8.6 mg/dL (8.5-10.5) 01/18/24 05:39 Magnesium 2.2 mg/dL (1.7-2.3) 01/18/24 05:39 Total Bilirubin 0.6 mg/dL (0.15-1.2) 01/18/24 05:39 AST 15 U/L (0-40) 01/18/24 05:39 ALT 12 U/L (0-41) 01/18/24 05:39 Alkaline Phosphatase 82 U/L (40-130) 01/18/24 05:39 Troponin T Baseline 12 ng/L (0-15) 01/17/24 05:30 Troponin T 120 Minute 11.20 ng/L (0-15) 01/17/24 07:02 Delta Troponin T -0.80 ABS# (0-10) L 01/17/24 07:02 Troponin T Hi Sens 6Hr 8.66 ng/L (0-15) 01/17/24 11:25 Troponin T Hi Sens 6Hr Delta -3.34 ng/L (0-12) L 01/17/24 11:25 Total Protein 6.3 g/dL (6.6-8.7) L 01/18/24 05:39 Albumin 3.9 g/dL (3.5-5.2) 01/18/24 05:39 Globulin 2.4 g/dL (1.3-4.6) 01/18/24 05:39 Triglycerides 84 mg/dL (0-150) 01/18/24 05:39 Cholesterol 200 mg/dL (0-200) 01/18/24 05:39 LDL Cholesterol, Calc 118 mg/dL (50-129) 01/18/24 05:39 HDL Cholesterol 65 mg/dL (60-100) 01/18/24 05:39 LDL/HDL Ratio 1.82 RATIO (0.00-3.22) 01/18/24 05:39 Cholesterol/HDL Ratio 3.08 mg/dL (1.0-5.00) 01/18/24 05:39 TSH 2.12 uIU/mL (0.27-4.20) 01/17/24 05:30 A&P Assessment and plan (1) Atherosclerotic heart disease of [place] coronary artery with unstable angina pectoris: Patient status post PCI of the mid LAD lesion. Will continue the Plavix and Lipitor. Qualifiers: [place] vs. transplanted heart: [place] heart Qualified Code(s): I25.110 - Atherosclerotic heart disease of [place] coronary artery with unstable angina pectoris (2) Elevated blood pressure reading: I may start go ahead and start the patient on lisinopril 10 mg p.o. daily. His vitals will be closely monitored on telemetry. (3) Dyslipidemia: The LDL was found to be 118. Normal HDL and triglycerides. Will continue the Lipitor. (4) COPD (chronic obstructive pulmonary disease): Continue on the current management. Qualifiers: COPD type: unspecified COPD Qualified Code(s): J44.9 - Chronic obstructive pulmonary disease, unspecified Plan Based on the clinical progress, further recommendations will be made. If he continues to remain stable, may be discharged home tomorrow. Attestations Medical Necessity Statement*: Patient requires continued hospital stay for close monitoring and further management Coding Level of Care Code 41306 Diagnoses Atherosclerosis of [place] coronary artery of [place] heart with unstable angina pectoris I25.110 [place] vs. transplanted heart: [place] heart Elevated blood pressure reading R03.0 Dyslipidemia E78.5 Chronic obstructive pulmonary disease, unspecified COPD type J44.9 COPD type: unspecified COPD
[2024-01-19] VITALS (21 sets, daily range): BP systolic 101–176; BP diastolic 58–121; PULSE 54–75; RESP 13–21; TEMP 36.3–36.9; O2SAT 94–97; BMI 23.8
[2024-01-19 04:01] LABS: Basophils % 0.4 %; Eosinophils # 0.1 10^3/uL (0.0-0.8); Eosinophils % 1.4 %; Hematocrit 47.8 % (37-53); Lymphocytes # 2.3 10^3/uL (0.8-4.8); Lymphocytes % 23.8 %; Mean Corpuscular HGB Conc 33.9 g/dL (30-55); Mean Corpuscular Hemoglobin 31.8 pg (27-33); Mean Corpuscular Volume 93.7 fl (82-101); Mean Platelet Volume 9.7 fL (7.4-10.4); Monocytes # 0.8 10^3/uL (0.2-0.9); Monocytes % 8.1 %; Neutrophils # 6.49 10^3/uL (1.8-7.7); Nucleated Red Blood Cells % 0 %; Platelet Count 231 10^3/cmm (157-399); Red Cell Distribution Width 12.7 % (12.1-15.1); White Blood Count 9.84 10^3/uL (3.29-11.43)
[2024-01-19 04:24] LABS: Anion Gap 13.1 (5-19); Blood Urea Nitrogen 17 mg/dL (8-23); Calcium 8.9 mg/dL (8.5-10.5); Carbon Dioxide 24 mmol/L (22-29); Chloride 105 mmol/L (98-107); Creatinine Clr Calc Pharmacy 83.9124; Glucose 106 mg/dL (65-115); Osmolality Calculated 288 mOsm/kg (285-295); Potassium 4.1 mmol/L (3.5-5.1); Sodium 138 mmol/L (136-145)
[2024-01-19] MEDS: pantoprazole DR 40 mg Tablet PO (08:27)
[2024-01-19] MEDS: clopidogrel 75 mg Tablet PO (08:27)
[2024-01-19] MEDS: atorvastatin 40 mg Tablet PO (08:28)
[2024-01-19] MEDS: aspirin 81 mg EC Tablet PO (08:28)
[2024-01-19] MEDS: lisinopril 10 mg Tablet PO (08:38)
--- NOTE | 2024-01-19 08:41 | P.DS_ITS ---
Discharge Providers Date of Admission: 01/17/24 12:38 Date of Discharge: January 19, 2024 Attending Provider at Admission: Rome Kaur MD Attending Provider at Discharge: Rome Kaur MD Primary Care Provider: Karen Gay MD Diagnoses at Discharge Discharge Diagnosis (1) Atherosclerotic heart disease of [place] coronary artery with unstable angina pectoris: Status: Acute Qualifiers: [place] vs. transplanted heart: [place] heart Qualified Code(s): I25.110 - Atherosclerotic heart disease of [place] coronary artery with unstable angina pectoris (2) Elevated blood pressure reading: Status: Acute (3) Dyslipidemia: Status: Acute (4) COPD (chronic obstructive pulmonary disease): Status: Acute Qualifiers: COPD type: unspecified COPD Qualified Code(s): J44.9 - Chronic obstructive pulmonary disease, unspecified Reason for Visit Reason for Visit: CP Hospital Course Hospital Course Steven is a 73-year-old white male who presented to the hospital with chest discomfort. He had previously had an abnormal stress test, and never gotten follow-up. His troponin was normal. EKG demonstrated no significant changes. He was admitted the hospital with concern of angina/chest discomfort. Troponin series was negative. Echocardiogram demonstrated preserved EF. Cardiology evaluated the patient, and secondary to abnormal stress testing in the past with clinical presentation and history an angiogram was indicated. He was taken for angiogram and found to have a mid LAD lesion, which required stenting. He was loaded with Plavix, started on a statin. He was already on low-dose aspirin that was continued. Lisinopril was added, 10 mg a day secondary to elevated b lood pressure. Beta-blockers were not added secondary to bradycardia. He will follow-up with cardiology clinic, and his primary care provider in the next week. He is to return for any concerns. Angiogram sites, right wrist and right groin without hematoma upon discharge. He was given the opportunity ask questions and agreed with the plan. Physical Exam Narrative: General Exam no distress Neck is supple Cardiovascular regular rate and rhythm Lungs clear Abdomen soft Extremities no sinus clubbing edema right radial wrist site, right groin without significant hematoma. Full neurovascular function was intact distally. Discharge Data Studies Completed and Pending Completed Studies During Hospitalization Category Date Time Status XR chest 1V portable [id number] Stat Exams 01/17/24 05:42 Completed CV. echo complete* [id number] Routine Ultrasound 01/17/24 12:38 Completed Pending at discharge Category Date Time Status [employer] request for service Routine Exams 01/18/24 08:30 Taken Radiology Impressions Chest X-Ray 01/17/24 05:42 IMPRESSION: No acute findings. Laboratory Results WBC 9.84 10^3/uL (3.29-11.43) 01/19/24 03:47 RBC 5.10 10^6/uL (3.85-5.65) 01/19/24 03:47 Hgb 16.20 g/dL (11.27-16.99) 01/19/24 03:47 Hct 47.8 % (37-53) 01/19/24 03:47 MCV 93.7 fl (82-101) 01/19/24 03:47 MCH 31.8 pg (27-33) 01/19/24 03:47 MCHC 33.9 g/dL (30-55) 01/19/24 03:47 RDW 12.7 % (12.1-15.1) 01/19/24 03:47 Plt Count 231 10^3/cmm (157-399) 01/19/24 03:47 MPV 9.7 fL (7.4-10.4) 01/19/24 03:47 Neut % (Auto) 66.0 % 01/19/24 03:47 Lymph % (Auto) 23.8 % 01/19/24 03:47 [place] % (Auto) 8.1 % 01/19/24 03:47 Eos % (Auto) 1.4 % 01/19/24 03:47 Baso % (Auto) 0.4 % 01/19/24 03:47 Neut # (Auto) 6.49 10^3/uL (1.8-7.7) 01/19/24 03:47 Lymph # (Auto) 2.3 10^3/uL (0.8-4.8) 01/19/24 03:47 [place] # (Auto) 0.8 10^3/uL (0.2-0.9) 01/19/24 03:47 Eos # (Auto) 0.1 10^3/uL (0.0-0.8) 01/19/24 03:47 Baso # (Auto) 0.0 10^3/uL (0.0-0.1) 01/19/24 03:47 Nucleated RBC % (auto) 0 % 01/19/24 03:47 Nucleated RBCs # 0.0 /100WBC 01/19/24 03:47 PT 13.30 SECONDS (12.1-14.9) 01/17/24 08:28 INR 0.98 (0.8-1.2) 01/17/24 08:28 APTT 97.3 SECONDS (23.9-36.7) H 01/17/24 23:20 Sodium 138 mmol/L (136-145) 01/19/24 03:47 Potassium 4.1 mmol/L (3.5-5.1) 01/19/24 03:47 Chloride 105 mmol/L (98-107) 01/19/24 03:47 Carbon Dioxide 24 mmol/L (22-29) 01/19/24 03:47 Anion Gap 13.1 (5-19) 01/19/24 03:47 BUN 17 mg/dL (8-23) 01/19/24 03:47 Creatinine 0.9 mg/dL (0.7-1.2) 01/19/24 03:47 GFR Calculation Not Reportable 01/19/24 03:47 Glucose 106 mg/dL (65-115) 01/19/24 03:47 Calculated Osmolality 288 mOsm/kg (285-295) 01/19/24 03:47 Calcium 8.9 mg/dL (8.5-10.5) 01/19/24 03:47 Magnesium 2.2 mg/dL (1.7-2.3) 01/18/24 05:39 Total Bilirubin 0.6 mg/dL (0.15-1.2) 01/18/24 05:39 AST 15 U/L (0-40) 01/18/24 05:39 ALT 12 U/L (0-41) 01/18/24 05:39 Alkaline Phosphatase 82 U/L (40-130) 01/18/24 05:39 Troponin T Baseline 12 ng/L (0-15) 01/17/24 05:30 Troponin T 120 Minute 11.20 ng/L (0-15) 01/17/24 07:02 Delta Troponin T -0.80 ABS# (0-10) L 01/17/24 07:02 Troponin T Hi Sens 6Hr 8.66 ng/L (0-15) 01/17/24 11:25 Troponin T Hi Sens 6Hr Delta -3.34 ng/L (0-12) L 01/17/24 11:25 Total Protein 6.3 g/dL (6.6-8.7) L 01/18/24 05:39 Albumin 3.9 g/dL (3.5-5.2) 01/18/24 05:39 Globulin 2.4 g/dL (1.3-4.6) 01/18/24 05:39 Triglycerides 84 mg/dL (0-150) 01/18/24 05:39 Cholesterol 200 mg/dL (0-200) 01/18/24 05:39 LDL Cholesterol, Calc 118 mg/dL (50-129) 01/18/24 05:39 HDL Cholesterol 65 mg/dL (60-100) 01/18/24 05:39 LDL/HDL Ratio 1.82 RATIO (0.00-3.22) 01/18/24 05:39 Cholesterol/HDL Ratio 3.08 mg/dL (1.0-5.00) 01/18/24 05:39 TSH 2.12 uIU/mL (0.27-4.20) 01/17/24 05:30 Vitals Last Vital Signs Temp 97.3 F L 01/19/24 08:00 Pulse 73 01/19/24 08:35 Resp 18 01/19/24 08:35 BP 154/121 01/19/24 08:30 Pulse Ox 96 01/19/24 08:35 O2 Del Method Room Air 01/19/24 08:35 Discharge Plan Discharge Patient Disposition: Home Condition: Stable Prescriptions: New clopidogrel 75 mg Tablet 75 mg PO DAILY Qty: 30 11RF atorvastatin 40 mg Tablet 40 mg PO DAILY Qty: 30 0RF lisinopril 10 mg Tablet 10 mg PO DAILY Qty: 30 0RF Continued acetaminophen [Tylenol Ex Str Rapid Release] 500 mg Tablet 1,000 mg PO Q6H PRN (Reason: Pain) aspirin [Aspir-81] 81 mg Tablet,Delayed Release (Dr/Ec) 81 mg PO QAM nitroglycerin [Nitrostat] 0.4 mg Tablet, Sublingual 0.4 mg SUBLINGUAL Q5M PRN (Reason: Chest Pain) Rx Instructions: do not exceed 3 doses per episode Discharge Orders: Discharge Order (Routine); Ordered 01/19/24 Ordered By: Rome Kaur Referrals: Karen Gay MD [Primary Care Provider] - 4-7 days Rubi Flowers FNP [Nurse Practitioner] - 1 week (follow up angiogram/stent) Discharge Diet: Cardiac Discharge Activity: Increase activity as tolerated Patient Instructions: Coronary Angioplasty (DC), Opioid Safety Activity Restrictions/Additional Instructions: Take all medicine as prescribed. Follow-up with primary care provider 3 to 5 days Follow-up with cardiology next week Return for any concerns Heart catheterization instructions/restrictions. Please review discharge with cardiology/make sure they do not have addendums prior to discharge. Discharge Attestations Time Spent in Discharge Care*: greater than 30 min Quality Metrics Clinical Quality Measures [ No reported AMI, CVA or VTE this stay] Coding Level of Care Code 69491 Total time (in minutes) for Discharge: 34 Diagnoses Atherosclerosis of [place] coronary artery of [place] heart with unstable angina pectoris I25.110 [place] vs. transplanted heart: [place] heart Elevated blood pressure reading R03.0 Dyslipidemia E78.5 Chronic obstructive pulmonary disease, unspecified COPD type J44.9 COPD type: unspecified COPD
--- NOTE | 2024-01-19 09:28 | PM.PN ---
Subjective Subjective: Patient is feeling okay. No chest pain or chest tightness. Medications: Medication Review Details: Current Medications Acetaminophen (Acetaminophen 325 Mg Tablet) 650 mg PO Q6H PRN PRN Reason: Mild/Mod Pain Or Temp >/= 101 Last Admin: 01/18/24 20:41 Dose: 650 mg Al Hydrox/Mg Hydrox/Simethicone (Rilb-Omx-Mdftevwxp-Sam 30 Ml Udc) 30 ml PO Q15M PRN PRN Reason: INDIGESTION Albuterol/Ipratropium (Ipratropium-Albuterol 3 Ml Neb) 3 ml INHALATION Q6H PRN PRN Reason: SHORTNESS OF BREATH Alprazolam (Alprazolam 0.5 Mg Tablet) 0.25 mg PO TID PRN PRN Reason: ANXIETY Aspirin (Aspirin 81 Mg Ec Tablet) 81 mg PO DAILY [facility] Last Admin: 01/19/24 08:28 Dose: 81 mg Atorvastatin Calcium (Atorvastatin 40 Mg Tablet) 40 mg PO DAILY [facility] Last Admin: 01/19/24 08:28 Dose: 40 mg Atropine Sulfate (Atropine 1 Mg/Ml Sdv 1 Ml) 0.5 mg IVP PRN PRN PRN Reason: Symptomatic bradycardia Clopidogrel Bisulfate (Clopidogrel 75 Mg Tablet) 75 mg PO DAILY [facility] Last Admin: 01/19/24 08:27 Dose: 75 mg Fentanyl (Fentanyl 50 Mcg/Ml Inj 2ml) 50 mcg IVP PRN PRN PRN Reason: PAIN Lisinopril (Lisinopril 10 Mg Tablet) 10 mg PO DAILY [facility] Last Admin: 01/19/24 08:38 Dose: 10 mg Magnesium Hydroxide (Magnesium Hydroxide 30 Ml Udc) 30 ml PO DAILY PRN PRN Reason: CONSTIPATION Naloxone HCl (Naloxone 0.4 Mg/Ml Sdv) 0.1 mg IVP Q2M PRN PRN Reason: RESPIRATORY RATE < 8/MIN Nitroglycerin (Nitroglycerin 0.4 Mg Sublingual Tablet) 0.4 mg SUBLINGUAL Q5M PRN PRN Reason: CHEST PAIN Ondansetron HCl (Ondansetron 2 Mg/Ml Sdv 2 Ml) 4 mg IVP Q6H PRN PRN Reason: vomiting, or N/V if npo Pantoprazole Sodium (Pantoprazole Dr 40 Mg Tablet) 40 mg PO DAILY [facility] Last Admin: 01/19/24 08:27 Dose: 40 mg Temazepam (Temazepam 15 Mg Capsule) 15 mg PO BEDTIME PRN PRN Reason: INSOMNIA Vitals/I&O/Wt Last Vital Signs Temp 97.3 F L 01/19/24 08:00 Pulse 73 01/19/24 08:35 Resp 18 01/19/24 08:35 BP 154/121 01/19/24 08:30 Pulse Ox 96 01/19/24 08:35 O2 Del Method Room Air 01/19/24 08:35 01/18/24 01/19/24 01/19/24 22:59 06:59 14:59 Intake Total 648.333 / 848.333 240 / 1088.333 Output Total 900 / 900 Balance -251.667 / -51.667 240 / 188.333 Weight last 48 hrs Weight 180 lb 12.465 oz Weight 176 lb 8 oz Weight 180 lb Physical Exam Narrative: GENERAL: The patient is alert and oriented times three. Not in any acute distress. HEENT: No significant pallor, icterus or lymphadenopathy.Oral cavity: There are no mucous membrane lesions. NECK: Trachea appears to be central. No masses noted. No JVD or thyromegaly appreciated. RESPIRATORY: Chest is symmetrical. No intercostals muscle retraction or any accessory muscle activation. There is no chest wall tenderness. Breath sounds are heard bilaterally. No rales or rhonchi heard. No evidence of any consolidation. BREASTS: Deferred. HEART: The heart sounds are normal. No S3 or S4. No significant murmurs. No pericardial rub ABDOMEN: No vessel pulsations or distention. No tenderness. No organomegaly appreciated. Bowel sounds are normally heard. : Deferred. RECTAL: Deferred. LYMPHATIC: No lymphadenopathy noted in the neck. EXTREMITIES: No edema or cyanosis. No clubbing. MUSCULOSKELETAL: No acute joint deformities or swelling SKIN: There are no significant rashes or ecchymosis NEUROPSYCHIATRIC: The patient is alert and oriented x3. Appears to be in a good mood. No tremors or rigidity noted. Data 01/19/24 03:47 01/19/24 03:47 Other Labs: Laboratory Last Values WBC 9.84 10^3/uL (3.29-11.43) 01/19/24 03:47 RBC 5.10 10^6/uL (3.85-5.65) 01/19/24 03:47 Hgb 16.20 g/dL (11.27-16.99) 01/19/24 03:47 Hct 47.8 % (37-53) 01/19/24 03:47 MCV 93.7 fl (82-101) 01/19/24 03:47 MCH 31.8 pg (27-33) 01/19/24 03:47 MCHC 33.9 g/dL (30-55) 01/19/24 03:47 RDW 12.7 % (12.1-15.1) 01/19/24 03:47 Plt Count 231 10^3/cmm (157-399) 01/19/24 03:47 MPV 9.7 fL (7.4-10.4) 01/19/24 03:47 Neut % (Auto) 66.0 % 01/19/24 03:47 Lymph % (Auto) 23.8 % 01/19/24 03:47 [place] % (Auto) 8.1 % 01/19/24 03:47 Eos % (Auto) 1.4 % 01/19/24 03:47 Baso % (Auto) 0.4 % 01/19/24 03:47 Neut # (Auto) 6.49 10^3/uL (1.8-7.7) 01/19/24 03:47 Lymph # (Auto) 2.3 10^3/uL (0.8-4.8) 01/19/24 03:47 [place] # (Auto) 0.8 10^3/uL (0.2-0.9) 01/19/24 03:47 Eos # (Auto) 0.1 10^3/uL (0.0-0.8) 01/19/24 03:47 Baso # (Auto) 0.0 10^3/uL (0.0-0.1) 01/19/24 03:47 Nucleated RBC % (auto) 0 % 01/19/24 03:47 Nucleated RBCs # 0.0 /100WBC 01/19/24 03:47 PT 13.30 SECONDS (12.1-14.9) 01/17/24 08: INR 0.98 (0.8-1.2) 01/17/24 08:28 APTT 97.3 SECONDS (23.9-36.7) H 01/17/24 23:20 Sodium 138 mmol/L (136-145) 01/19/24 03:47 Potassium 4.1 mmol/L (3.5-5.1) 01/19/24 03:47 Chloride 105 mmol/L (98-107) 01/19/24 03:47 Carbon Dioxide 24 mmol/L (22-29) 01/19/24 03:47 Anion Gap 13.1 (5-19) 01/19/24 03:47 BUN 17 mg/dL (8-23) 01/19/24 03:47 Creatinine 0.9 mg/dL (0.7-1.2) 01/19/24 03:47 GFR Calculation Not Reportable 01/19/24 03:47 Glucose 106 mg/dL (65-115) 01/19/24 03:47 Calculated Osmolality 288 mOsm/kg (285-295) 01/19/24 03:47 Calcium 8.9 mg/dL (8.5-10.5) 01/19/24 03:47 Magnesium 2.2 mg/dL (1.7-2.3) 01/18/24 05:39 Total Bilirubin 0.6 mg/dL (0.15-1.2) 01/18/24 05:39 AST 15 U/L (0-40) 01/18/24 05:39 ALT 12 U/L (0-41) 01/18/24 05:39 Alkaline Phosphatase 82 U/L (40-130) 01/18/24 05:39 Troponin T Baseline 12 ng/L (0-15) 01/17/24 05:30 Troponin T 120 Minute 11.20 ng/L (0-15) 01/17/24 07:02 Delta Troponin T -0.80 ABS# (0-10) L 01/17/24 07:02 Troponin T Hi Sens 6Hr 8.66 ng/L (0-15) 01/17/24 11:25 Troponin T Hi Sens 6Hr Delta -3.34 ng/L (0-12) L 01/17/24 11:25 Total Protein 6.3 g/dL (6.6-8.7) L 01/18/24 05:39 Albumin 3.9 g/dL (3.5-5.2) 01/18/24 05:39 Globulin 2.4 g/dL (1.3-4.6) 01/18/24 05:39 Triglycerides 84 mg/dL (0-150) 01/18/24 05:39 Cholesterol 200 mg/dL (0-200) 01/18/24 05:39 LDL Cholesterol, Calc 118 mg/dL (50-129) 01/18/24 05:39 HDL Cholesterol 65 mg/dL (60-100) 01/18/24 05:39 LDL/HDL Ratio 1.82 RATIO (0.00-3.22) 01/18/24 05:39 Cholesterol/HDL Ratio 3.08 mg/dL (1.0-5.00) 01/18/24 05:39 TSH 2.12 uIU/mL (0.27-4.20) 01/17/24 05:30 A&P Assessment and plan (1) Atherosclerotic heart disease of [place] coronary artery with unstable angina pectoris: Patient status post PCI of the mid LAD lesion. Will continue the Plavix and Lipitor. Patient was started on lisinopril. Seems to be tolerating it well so far Qualifiers: [place] vs. transplanted heart: [place] heart Qualified Code(s): I25.110 - Atherosclerotic heart disease of [place] coronary artery with unstable angina pectoris (2) Elevated blood pressure reading: I may start go ahead and start the patient on lisinopril 10 mg p.o. daily. His vitals will be closely monitored on telemetry. (3) Dyslipidemia: The LDL was found to be 118. Normal HDL and triglycerides. Will continue the Lipitor. (4) COPD (chronic obstructive pulmonary disease): Continue on the current management. Qualifiers: COPD type: unspecified COPD Qualified Code(s): J44.9 - Chronic obstructive pulmonary disease, unspecified Plan Since he seems to be remain stable, may be discharged home today. Current medications may be continued. Appointment the [facility] to be seen by the nurse practitioner in 1 week. Appoint with me in the office in 1 month Attestations Medical Necessity Statement*: Discharge home today Coding Level of Care Code 17394 Diagnoses Atherosclerosis of [place] coronary artery of [place] heart with unstable angina pectoris I25.110 [place] vs. transplanted heart: [place] heart Elevated blood pressure reading R03.0 Dyslipidemia E78.5 Chronic obstructive pulmonary disease, unspecified COPD type J44.9 COPD type: unspecified COPD
--- NOTE | 2024-01-19 11:26 | PC.NURSE ---
Patient discharged at 0950. IV removed, education on upcoming appointments, new medications, and activity restrictions provided. Took PT out to ER entrance wher ehis daughter picke dhim up. Sent home with shirt, shorts, and cell phone. Medications sent to [facility] pharmacy.
== END 2024-01-19 09:50 | disposition home or self-care (01) ==
LOC: ER 08:19 → MEDSURG 19:44 → ICU 01-18 10:56
PROVIDERS: Emergency Medicine; Internal Medicine; Internal Medicine Cardiovascular Disease; Admitting Provider Internal Medicine; Emergency Provider Family Medicine; PCP Family Medicine; Visit Provider Internal Medicine
DX: I25.110 Atherosclerotic heart disease of native coronary artery with unstable angina pectoris (principal); R03.0 Elevated blood-pressure reading, without diagnosis of hypertension; E78.5 Hyperlipidemia, unspecified; J44.9 Chronic obstructive pulmonary disease, unspecified; Z87.891 Personal history of nicotine dependence; M54.2 Cervicalgia; Z98.1 Arthrodesis status
CPT/HCPCS: 36415; 71045; 80048; 80053; 80061; 83735; 84443; 84484; 85025; 85347; 85610; 85730; 93005; 93306; 93458; 93571; 96374; 96375; 99152; 99153; 99285; C1725; C1760; C1769; C1874; C1887; C1894; C9600; G0269; G0378; J1644; J2250; J3010; J3490; J7030; Q0163; Q9967

== ENCOUNTER 2024-01-21 09:40 | Emergency (ER) | payer MEDICARE, SELFPAY ==
[2024-01-21 09:48] VITALS: BP 132/90; PULSE 79; RESP 16; TEMP 36.7; O2SAT 96
--- NOTE | 2024-01-21 09:52 | ECG_ITS ---
[facility] Test Date: 2024-01-21 Pat Name: Steven Ohara Department: Room: Gender: Male Bobj Developer: : 1950 Requested By: Jarvis Menjivar Order Number: [id number] Alexus MD: Eli Liriano M.D. Measurements Intervals [place] Rate: 68 P: 73 [place]: 146 QRS: 85 QRSD: 89 T: 78 QT: 373 QTc: 398 Interpretive Statements SINUS RHYTHM Compared to ECG 01/17/2024 11:46:08 Sinus bradycardia no longer present Electronically Signed On 01-21-2024 18:46:48 CDT by Eli Liriano M.D. [email or web address] Corporationconerly critical care [email or web address] [email or web address] [id number]
--- NOTE | 2024-01-21 10:07 | USCV_ITS ---
Steven Ohara Age: 73 Gender: M : 1950 Exam Date: 01/21/2024 10:48 Ordering Phys: Jarvis Manrique DO Technologist: Todd Paz [place] [facility] [place]: right groin post angio Findings Possible pseudo aneursym noted in the rt groin. Rt CFV patent. CCIE patent. The femoral artery at the groin right groin was interrogated. 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 Turbulent flow was noted in this region, communicating with the femoral artery with a neck 0.4 cm wide. The aneurysm sac is measuring 1.5 x 0.8 cm. Hypoechoic areas are noted on the groin, suggesting edema Conclusions Features of small pseudoaneurysm in the right groin measuring 1.5 x 0.8 cm with a neck measuring 0.4 cm Some features of possible edema in the groin Dr Eli Liriano MD [facility] (Electronically Signed) Final Date: 21 January 2024 12:15 S
--- NOTE | 2024-01-21 10:50 | ED_ITS ---
HPI - Extremity Problem General: Chief complaint: Extremity Problem,Nontraumatic Stated complaint: post stent swelling Time Seen by Provider: 01/21/24 10:07 History of Present Illness: 73-year-old male recently shower this mo rning and had a sudden onset of swelling in his right groin. He recently had an angiogram by Dr. Liriano. Noticed some increasing bruising. No chest pain no shortness of breath. Associated symptoms: Deny chest pain, fever(s) or rash Related Data Home Medications Medication Instructions Recorded Confirmed acetaminophen 500 mg tablet 1,000 mg PO Q6H PRN Pain 12/16/21 01/17/24 aspirin 81 mg tablet,delayed 81 mg PO QAM 01/19/22 01/17/24 release nitroglycerin 0.4 mg sublingual 0.4 mg sublingual Q5M PRN Chest 01/19/22 01/17/24 tablet (Nitrostat) Pain Previous Rx's Medication Instructions Recorded atorvastatin 40 mg tablet 40 mg PO DAILY #30 tabs 01/19/24 clopidogrel 75 mg tablet 75 mg PO DAILY #30 tabs 01/19/24 lisinopril 10 mg tablet 10 mg PO DAILY #30 tabs 01/19/24 Allergies Allergy/AdvReac Type Severity Reaction Status Date / Time No Known Allergies Allergy Verified 01/21/24 09:53 Review of Systems Const: Denies: fever(s) or chills Card: Denies: chest pain Resp: Denies: dyspnea GI: Denies: abdominal pain : Denies: dysuria, urinary frequency or urinary urgency Musc: Denies: neck pain or back pain Skin/Breast: Denies: rash PFSH ED PFSH: Medical History COPD (chronic obstructive pulmonary disease) Surgical History History of hernia surgery History of spinal fusion Family History Other Alzheimer's dementia Cancer Social History Smoking and tobacco/nicotine status: former use of tobacco/nicotine Alcohol intake: current Alcohol intake frequency: 0-2 Drinks per Day Substance/Drug Use: current Physical Exam Const: COMMON NORMALS: no acute distress GENERAL APPEARANCE: cooperative and comfortable ORIENTATION/CONSCIOUSNESS: Yes awake, Yes oriented to person, Yes oriented to place and Yes oriented to time HENMT: COMMON NORMALS: normocephalic, atraumatic and hearing grossly normal bilaterally HEAD & SCALP: normocephalic and atraumatic Resp: COMMON NORMALS: normal respiratory effort, No retractions, No use of accessory muscles and clear to auscultation bilaterally AUSCULTATION: clear to auscultation bilaterally Cardio: COMMON NORMALS: regular rate, regular rhythm and No murmurs present (Cardio) RATE: regular rate RHYTHM: regular rhythm Extremity: COMMON NORMALS: normal to inspection, capillary refill normal, no clubbing, cyanosis or edema, no calf tenderness and no pedal edema NARRATIVE EXTREMITY EXAM: Swelling in the right groin nonpulsatile minimally tender some ecchymosis present Neuro: SENSORIUM/ORIENTATION: Yes oriented to person, Yes oriented to place and Yes oriented to time Skin: COMMON NORMALS: no rashes or lesions noted GENERAL SKIN EXAM: no rashes or lesions noted Course Vital Signs: Vital signs: Vital Signs Temperature 98.1 F 01/21/24 09:48 Pulse Rate 60 01/21/24 14:11 Respiratory Rate 14 01/21/24 12:24 Blood Pressure 119/74 01/21/24 14:11 Pulse Oximetry 96 01/21/24 14:11 Oxygen Delivery Me thod Room Air 01/21/24 09:48 MDM - Extremity (Nontraumatic) Medical Decision Making Ultrasound shows pseudoaneurysm small in size. Discussed Dr. Liriano recommends direct pressure for 10 minutes and reimaging. This was done and showed significant improvement patient is feeling better. Dr. Liriano recommend that he can be discharged at this time after he had reviewed his repeat films. He was seen back in the office in 1 week avoid excess exertional activities. All radiology interpretation(s) finalized by discharge Discharge Plan Discharge Patient Disposition: Home Clinical Impression: Femoral artery pseudo-aneurysm, right Condition: Stable Prescriptions: No Action acetaminophen 500 mg Tablet 1,000 mg PO Q6H PRN (Reason: Pain) aspirin 81 mg Tablet,Delayed Release (Dr/Ec) 81 mg PO QAM nitroglycerin [Nitrostat] 0.4 mg Tablet, Sublingual 0.4 mg SUBLINGUAL Q5M PRN (Reason: Chest Pain) Rx Instructions: do not exceed 3 doses per episode atorvastatin 40 mg Tablet 40 mg PO DAILY Qty: 30 0RF clopidogrel 75 mg Tablet 75 mg PO DAILY Qty: 30 11RF lisinopril 10 mg Tablet 10 mg PO DAILY Qty: 30 0RF Discharge Orders: Discharge ED (Routine); Ordered 01/21/24 Ordered By: Jarvis Manrique Referrals: Karen Gay MD [Primary Care Provider] - Discharge Diet: Usual diet Discharge Activity: Limit activity as instructed Patient Instructions: Opioid Safety, Pain Management Activity Restrictions/Additional Instructions: Thank you for choosing [facility] for your healthcare needs today. It is very important that you follow up as instructed or that you return to the Emergency Department should you have concerns or if your condition changes or worsens in any way. You were seen emergency room for swelling in your right groin. Ultrasound showed a pseudoaneurysm after direct pressure applied over a period of time recheck shows it had improved. Dr. Liriano reviewed the findings and recommend that we get discharged home he like to see you within a week at the office. If you have any worsening or change symptoms return. Avoid exertional activities Coding Level of Care Code ED Marketing Strategy Lead for Blake Conklin
[2024-01-21 11:12] VITALS: BP 111/72; PULSE 70; O2SAT 97
[2024-01-21 12:24] VITALS: BP 148/87; PULSE 63; RESP 14; O2SAT 97
--- NOTE | 2024-01-21 13:05 | USCV_ITS ---
Steven Ohara Age: 73 Gender: M : 1950 Exam Date: 01/21/2024 13:16 Ordering Phys: Jarvis Manrique DO Technologist: JEFFREY [place] [facility] [place]ication: post scan Findings Doppler examination of the femoral artery in the right groin was performed. Artery was found to be patent. The area of pseudoaneurysm appears to have no communication with the femoral artery Conclusions No evidence of pseudoaneurysm at this time(patient had a manual compression prior to the study) Dr Eli Liriano MD [facility] (Electronically Signed) Final Date: 21 January 2024 15:36 S
[2024-01-21 13:12] VITALS: BP 134/64; PULSE 85; O2SAT 96
--- NOTE | 2024-01-21 13:12 | PC.NURSE ---
this nurse and Dr. Liriano in room to hold pressure to R groin. Dr. Liriano applied manual pressure for 5 minutes and per verbal orders of Dr. Liriano for this nurse to hold manual pressure to R groin for 10 minutes. total applied manual pressure of 15 minutes complete @[id number]. Dr. Manrique notified, repeat ultrasound order placed per Dr. Liriano.
[2024-01-21 14:11] VITALS: BP 119/74; PULSE 60; O2SAT 96
[2024-01-21 14:52] VITALS: BP 119/74; PULSE 60; O2SAT 96
== END 2024-01-21 14:52 | disposition home or self-care (01) ==
PROVIDERS: Emergency Provider Family Medicine; PCP Family Medicine
DX: I72.4 Aneurysm of artery of lower extremity (principal); Z79.02 Long term (current) use of antithrombotics/antiplatelets; Z79.82 Long term (current) use of aspirin; Z87.891 Personal history of nicotine dependence; J44.9 Chronic obstructive pulmonary disease, unspecified
CPT/HCPCS: 93005; 93926; 99284

== ENCOUNTER 2024-01-22 11:07 | Emergency (ER) | payer MEDICARE, SELFPAY ==
[2024-01-22 11:22] VITALS: BP 134/69; PULSE 81; RESP 17; TEMP 36.6; O2SAT 96; BMI 23.7
--- NOTE | 2024-01-22 11:27 | USCV_ITS ---
Steven Ohara Age: 73 Gender: M : 1950 Exam Date: 01/22/2024 12:07 Ordering Phys: Jessi Coleman MD Technologist: Todd Paz Exam [facility]: [facility] [place] Indication: eval pseudo Findings Patent femoral artery and vein Multiple hypoechoic areas in the groin with no communication signs of blood flow into his areas Conclusions 1. Features of resolving hematoma 2. No evidence of pseudoaneurysm 3. Patent femoral artery and vein in the groin Dr Eli Liriano MD [facility] (Electronically Signed) Final Date: 22 January 2024 12:48 S
--- NOTE | 2024-01-22 11:28 | W.ED.GENADLT ---
HPI - General Adult General: Chief complaint: General Medical Stated complaint: problems with urinary stent Time Seen by Provider: 01/22/24 11:23 History of Present Illness: 73-year-old man with a history of hypertension and COPD, hypertension and coronary artery disease and a recent PCI with stent to the LAD and then a small right pseudoaneurysm that was seen in the emergency room yesterday. Dr. Liriano evaluated and compressed. Ultrasound was done. He says his bruising has spread but the hard pseudoaneurysm may be a little bit smaller he was told to come back if it felt bigger. He says the bruising looks bigger so he came back. Related Data Home Medications Medication Instructions Recorded Confirmed acetaminophen 500 mg tablet 1,000 mg PO Q6H PRN Pain 12/16/21 01/17/24 aspirin 81 mg tablet,delayed 81 mg PO QAM 01/19/22 01/17/24 release nitroglycerin 0.4 mg sublingual 0.4 mg sublingual Q5M PRN Chest 01/19/22 01/17/24 tablet (Nitrostat) Pain Previous Rx's Medication Instructions Recorded atorvastatin 40 mg tablet 40 mg PO DAILY #30 tabs 01/19/24 clopidogrel 75 mg tablet 75 mg PO DAILY #30 tabs 01/19/24 lisinopril 10 mg tablet 10 mg PO DAILY #30 tabs 01/19/24 Allergies Allergy/AdvReac Type Severity Reaction Status Date / Time No Known Allergies Allergy Verified 01/21/24 09:53 [facility] ED PFSH: Medical History COPD (chronic obstructive pulmonary disease) Surgical History History of hernia surgery History of spinal fusion Family History Other Alzheimer's dementia Cancer Social History Smoking and tobacco/nicotine status: former use of tobacco/nicotine Alcohol intake: current Alcohol intake frequency: 0-2 Drinks per Day Substance/Drug Use: current Physical Exam Narrative: EXAM NARRATIVE: General: Alert, no acute distress. Skin: Warm, dry. Head: Normocephalic, atraumatic. Neck: Supple, trachea midline. Eye: Extraocular movements are intact. Ears, nose, mouth and throat: mucosa moist. Cardiovascular: Regular, Normal peripheral perfusion. Right groin has increased bruising but a smaller size of the bulge that I assume is the pseudoaneurysm. Respiratory: Lungs are clear to auscultation, respirations are non-labored, breath sounds are equal, Symmetrical chest wall expansion. Gastrointestinal: Soft, Nontender, Non distended Musculoskeletal: Normal ROM, no deformity. Neurological: Alert and oriented, No focal neurological deficit observed. Psychiatric: Cooperative, appropriate mood & affect. Course Vital Signs: Vital signs: Vital Signs Temperature 97.9 F 01/22/24 13:05 Pulse Rate 67 01/22/24 13:05 Respiratory Rate 16 01/22/24 13:05 Blood Pressure 109/61 01/22/24 13:05 Pulse Oximetry 96 01/22/24 13:05 Oxygen Delivery Me thod Room Air 01/22/24 12:57 MDM - General Adult Medical Decision Making Medical decision making: Differential diagnosis including but not limited to and based on the above HPI, review of systems and physical exam: There is concern for increasing size of the pseudoaneurysm. Basic labs to make sure he does not have any anemia from bleeding. Ultrasound ordered. Orders placed to evaluate differential diagnosis based on the above differential, HPI and physical exam Ultrasound arterial of the right groin: No change in pseudoaneurysm. This was read by Dr. Toth cardiology. Lab Review: Laboratory results were reviewed and interpreted by myself the emergency room physician. Lab work is unremarkable. I reviewed the patient's medical record. Reexamination: Patient remained stable. No increased work of breathing. No altered mental status. No focal motor deficits. Consultation: I spoke with Dr. Valle on-call for cardiology. He reviewed the ultrasound which shows no change in the pseudoaneurysm. Assessment and plan: Pseudoaneurysm of right groin - Discharged home - Discussed plan with patient. Answered any questions. - Evaluation and treatment of this problem were appropriate in the emergency setting. Lab Data 01/22/24 12:30 01/22/24 12:30 Laboratory Results WBC 8.48 10^3/uL (3.29-11.43) 01/22/24 12:30 RBC 4.40 10^6/uL (3.85-5.65) 01/22/24 12:30 Hgb 13.90 g/dL (11.27-16.99) 01/22/24 12:30 Hct 40.6 % (37-53) 01/22/24 12:30 MCV 92.3 fl (82-101) 01/22/24 12:30 MCH 31.6 pg (27-33) 01/22/24 12:30 MCHC 34.2 g/dL (30-55) 01/22/24 12:30 RDW 12.0 % (12.1-15.1) L 01/22/24 12:30 Plt Count 224 10^3/cmm (157-399) 01/22/24 12:30 MPV 9.8 fL (7.4-10.4) 01/22/24 12:30 Neut % (Auto) 69.5 % 01/22/24 12:30 Lymph % (Auto) 19.3 % 01/22/24 12:30 [place] % (Auto) 9.2 % 01/22/24 12:30 Eos % (Auto) 1.1 % 01/22/24 12:30 Baso % (Auto) 0.5 % 01/22/24 12:30 Neut # (Auto) 5.90 10^3/uL (1.8-7.7) 01/22/24 12:30 Lymph # (Auto) 1.6 10^3/uL (0.8-4.8) 01/22/24 12:30 [place] # (Auto) 0.8 10^3/uL (0.2-0.9) 01/22/24 12:30 Eos # (Auto) 0.1 10^3/uL (0.0-0.8) 01/22/24 12:30 Baso # (Auto) 0.0 10^3/uL (0.0-0.1) 01/22/24 12:30 Nucleated RBC % (auto) 0 % 01/22/24 12:30 Nucleated RBCs # 0.0 /100WBC 01/22/24 12:30 PT 13.20 SECONDS (12.1-14.9) 01/22/24 12:30 INR 0.97 (0.8-1.2) 01/22/24 12:30 APTT 29.2 SECONDS (23.9-36.7) 01/22/24 12:30 Sodium 133 mmol/L (136-145) L 01/22/24 12:30 Potassium 3.8 mmol/L (3.5-5.1) 01/22/24 12:30 Chloride 100 mmol/L (98-107) 01/22/24 12:30 Carbon Dioxide 22 mmol/L (22-29) 01/22/24 12:30 Anion Gap 14.8 (5-19) 01/22/24 12:30 BUN 14 mg/dL (8-23) 01/22/24 12:30 Creatinine 0.9 mg/dL (0.7-1.2) 01/22/24 12:30 GFR Calculation Not Reportable 01/22/24 12:30 Glucose 144 mg/dL (65-115) H 01/22/24 12:30 Calculated Osmolality 279 mOsm/kg (285-295) L 01/22/24 12:30 Calcium 8.3 mg/dL (8.5-10.5) L 01/22/24 12:30 Total Bilirubin 0.8 mg/dL (0.15-1.2) 01/22/24 12:30 AST 14 U/L (0-40) 01/22/24 12:30 ALT 15 U/L (0-41) 01/22/24 12:30 Alkaline Phosphatase 91 U/L (40-130) 01/22/24 12:30 Total Protein 6.2 g/dL (6.6-8.7) L 01/22/24 12:30 Albumin 3.8 g/dL (3.5-5.2) 01/22/24 12:30 Globulin 2.4 g/dL (1.3-4.6) 01/22/24 12:30 All radiology interpretation(s) finalized by discharge Discharge Plan Discharge Patient Disposition: Home Clinical Impression: Femoral artery pseudo-aneurysm, right, Coronary artery disease Condition: Stable Prescriptions: No Action acetaminophen 500 mg Tablet 1,000 mg PO Q6H PRN (Reason: Pain) aspirin 81 mg Tablet,Delayed Release (Dr/Ec) 81 mg PO QAM nitroglycerin [Nitrostat] 0.4 mg Tablet, Sublingual 0.4 mg SUBLINGUAL Q5M PRN (Reason: Chest Pain) Rx Instructions: do not exceed 3 doses per episode atorvastatin 40 mg Tablet 40 mg PO DAILY Qty: 30 0RF clopidogrel 75 mg Tablet 75 mg PO DAILY Qty: 30 11RF lisinopril 10 mg Tablet 10 mg PO DAILY Qty: 30 0RF Discharge Orders: Discharge ED (Routine); Ordered 01/22/24 Ordered By: Jessi Coleman Referrals: Karen Gay MD [Primary Care Provider] - Discharge Diet: Usual diet Discharge Activity: Limit activity as instructed Activity Restrictions/Additional Instructions: Thank you for choosing [facility] for your healthcare needs today. Please realize this is an emergency room and that we are providing you with a medical screening exam and this may not be complete and all inclusive of all the testing and or work up that you may need to determine your ailment or severity of your illness. You have been screened and evaluated and felt safe for discharge. Health conditions do change or evolve sometimes and as such it is important that you follow up with your Primary Doctor to be re checked, 3-5 days is a general good time frame for follow up. You are always welcome to return to the ED for re assessment if your symptoms are worsening or you have new concerns Coding Level of Care Code ED Railway Station Manager for Blake Conklin
[2024-01-22 11:30] VITALS: BP 134/69; PULSE 75; RESP 14; O2SAT 94
[2024-01-22 12:00] VITALS: BP 134/69; PULSE 68; RESP 16; O2SAT 94
[2024-01-22 12:44] LABS: Basophils % 0.5 %; Eosinophils # 0.1 10^3/uL (0.0-0.8); Eosinophils % 1.1 %; Hematocrit 40.6 % (37-53); Lymphocytes # 1.6 10^3/uL (0.8-4.8); Lymphocytes % 19.3 %; Mean Corpuscular HGB Conc 34.2 g/dL (30-55); Mean Corpuscular Hemoglobin 31.6 pg (27-33); Mean Corpuscular Volume 92.3 fl (82-101); Mean Platelet Volume 9.8 fL (7.4-10.4); Monocytes # 0.8 10^3/uL (0.2-0.9); Monocytes % 9.2 %; Neutrophils % 69.5 %; Nucleated Red Blood Cells % 0 %; Platelet Count 224 10^3/cmm (157-399); White Blood Count 8.48 10^3/uL (3.29-11.43)
[2024-01-22 12:52] LABS: Alanine Aminotransferase 15 U/L (0-41); Albumin Level 3.8 g/dL (3.5-5.2); Alkaline Phosphatase 91 U/L (40-130); Anion Gap 14.8 (5-19); Aspartate Amino Transferase 14 U/L (0-40); Blood Urea Nitrogen 14 mg/dL (8-23); Calcium 8.3 mg/dL (8.5-10.5); Carbon Dioxide 22 mmol/L (22-29); Chloride 100 mmol/L (98-107); Creatinine Clr Calc Pharmacy 86.9791; Globulin 2.4 g/dL (1.3-4.6); Glucose 144 mg/dL (65-115); Osmolality Calculated 279 mOsm/kg (285-295); Potassium 3.8 mmol/L (3.5-5.1); Sodium 133 mmol/L (136-145); Total Bilirubin 0.8 mg/dL (0.15-1.2); Total Protein 6.2 g/dL (6.6-8.7)
[2024-01-22 12:56] LABS: INR 0.97 (0.8-1.2)
[2024-01-22 12:57] VITALS: BP 109/61; PULSE 67; RESP 16; O2SAT 96
[2024-01-22 12:57] LABS: Partial Thromboplastin Time 29.2 SECONDS (23.9-36.7)
[2024-01-22 13:05] VITALS: BP 109/61; PULSE 67; RESP 16; TEMP 36.6; O2SAT 96
== END 2024-01-22 13:04 | disposition home or self-care (01) ==
PROVIDERS: Emergency Provider Emergency Medicine; PCP Family Medicine
DX: I72.4 Aneurysm of artery of lower extremity (principal); I25.10 Atherosclerotic heart disease of native coronary artery without angina pectoris; Z79.02 Long term (current) use of antithrombotics/antiplatelets; Z79.82 Long term (current) use of aspirin; J44.9 Chronic obstructive pulmonary disease, unspecified; Z87.891 Personal history of nicotine dependence
CPT/HCPCS: 36415; 80053; 85025; 85610; 85730; 93926; 99284

== ENCOUNTER → 2024-01-26 12:43 | Outpatient (BNVA) | payer MEDICARE, SELFPAY | PROVIDERS: PCP Family Medicine; Visit Provider Nurse Practitioner Family | DX: I25.10 Atherosclerotic heart disease of native coronary artery without angina pectoris (principal); Z95.5 Presence of coronary angioplasty implant and graft; Z87.891 Personal history of nicotine dependence | CPT/HCPCS: 99213 ==

== ENCOUNTER → 2024-01-31 08:29 | Outpatient (BNVA) | payer MEDICARE, SELFPAY | PROVIDERS: PCP Family Medicine; Visit Provider Student in an Organized Health Care Education/Training Program | DX: G56.01 Carpal tunnel syndrome, right upper limb (principal); M67.441 Ganglion, right hand; Z09 Encounter for follow-up examination after completed treatment for conditions other than malignant neoplasm | CPT/HCPCS: 99214 ==

== ENCOUNTER 2024-03-01 08:16 | Day surgery (SDC) | payer MEDICARE, SELFPAY ==
[2024-03-01 08:36] VITALS: BP 144/87; PULSE 68; RESP 18; TEMP 36.5; O2SAT 98
[2024-03-01 08:37] VITALS: BMI 23.1
[2024-03-01] MEDS: sodium chloride 0.9% 1,000 ML 30 ML IV (08:54)
[2024-03-01] MEDS: acetaminophen 1,000 MG/100 ML PIGGYBACK 400 MG IV (08:55)
[2024-03-01] MEDS: ketorolac 30 mg/mL INJ IVP (08:55)
--- NOTE | 2024-03-01 09:38 | W.PM.OPSUD ---
Surgery/Procedure H&P Update DATE OF PROCEDURE: March 01, 2024 DATE H&P PERFORMED: 01/31/24 H&P UPDATE INFORMATION: I have reviewed H&P completed within last 30 days, I have examined patient prior to procedure and No changes to prior documentation PREOP DIAGNOSIS: Right carpal tunnel syndrome, right palmar cyst excision PRIMARY INDICATION FOR PROCEDURE: Right carpal tunnel syndrome, right ulnar cyst excision PLANNED PROCEDURE: Operation Date: 03/01/24 10:30 Proposed Procedures p Carpal Tunnel Release(Right) - Siddhartha Walter DO s palmar cyst excision(Right) - Siddhartha Walter DO
--- NOTE | 2024-03-01 10:19 | PM.MISC ---
Miscellaneous Note Purpose of Documentation: Orthopedic note update: Patient was seen evaluated by anesthesia given the recent proximity of his stent it is recommended they avoid elective procedures until stent maceration within 6 months as a result I educated the patient on this I feel given the large cyst that he has a still be hard to completely get all under a local anesthetic and as a result through shared decision making he understands and agrees to proceed with canceling the surgery today and postponing it for 6 months after his date of her stents were placed which was back in December. Once again I apologized which patient understands and wants to be on the safe side and at this point in time we will cancel surgery but looking in 6 months we will bring him back 1 month prior to that date to get his H&P updated. Patient understands agrees with current plan. All questions answered. Patient had IVs removed in the PACU and discharged today.
--- NOTE | 2024-03-01 10:27 | SUR.PREOP ---
Case was cancelled due to patient had cardiac stents placed in December making the risks too high with anesthesia for elective procedure.
== END 2024-03-01 10:45 | disposition home or self-care (01) ==
PROVIDERS: PCP Family Medicine; Visit Provider Student in an Organized Health Care Education/Training Program
PROC: (CPT 64721; principal; 2024-03-01 10:30)
DX: G56.01 Carpal tunnel syndrome, right upper limb (principal); Z53.9 Procedure and treatment not carried out, unspecified reason
CPT/HCPCS: J0131; J1885; J7030

== ENCOUNTER → 2024-03-19 14:01 | Outpatient (BNVA) | payer MEDICARE, SELFPAY | PROVIDERS: PCP Family Medicine; Visit Provider Internal Medicine Cardiovascular Disease | DX: I25.10 Atherosclerotic heart disease of native coronary artery without angina pectoris (principal); I10 Essential (primary) hypertension; E78.5 Hyperlipidemia, unspecified | CPT/HCPCS: 99213 ==

== ENCOUNTER → 2024-09-24 12:23 | Outpatient (BNVA) | payer MEDICARE, SELFPAY | PROVIDERS: PCP Family Medicine; Visit Provider Internal Medicine Cardiovascular Disease | DX: I11.0 Hypertensive heart disease with heart failure (principal); I50.9 Heart failure, unspecified; I25.10 Atherosclerotic heart disease of native coronary artery without angina pectoris; E78.5 Hyperlipidemia, unspecified; Z79.01 Long term (current) use of anticoagulants; Z79.82 Long term (current) use of aspirin; Z87.891 Personal history of nicotine dependence; R07.9 Chest pain, unspecified; R06.02 Shortness of breath | CPT/HCPCS: 99214 ==

== ENCOUNTER → 2024-10-23 12:49 | Outpatient (BNVA) | payer MEDICARE, SELFPAY | PROVIDERS: PCP Family Medicine; Visit Provider Nurse Practitioner Family | DX: I25.118 Atherosclerotic heart disease of native coronary artery with other forms of angina pectoris (principal); I11.0 Hypertensive heart disease with heart failure; I50.9 Heart failure, unspecified; E78.5 Hyperlipidemia, unspecified; Z79.01 Long term (current) use of anticoagulants; Z79.82 Long term (current) use of aspirin; Z95.5 Presence of coronary angioplasty implant and graft | CPT/HCPCS: 99213 ==

== ENCOUNTER 2024-11-02 14:31 | Outpatient (CLI) | payer MEDICARE, SELFPAY ==
--- NOTE | 2024-11-02 15:00 | USCV_ITS ---
Steven Ohara Age: 74 Gender: M : 1950 Exam Date: 11/02/2024 14:54 Ordering Phys: Nica Saldana MD ([email or web address]) Technologist: DREW Exam [place]: [facility] [place] Indication: SoB, CP BP: 154 / 78 HR: 74 Rhythm: Sinus Technical Quality: Adequate MEASUREMENTS (Male / Female) Normal Values 2D ECHO LV Diastolic Diameter PLAX 3.8 cm 4.2 - 5.9 / 3.9 - 5.3 cm IVS Diastolic Thickness 0.8 cm 0.6 - 1.0 / 0.6 - 0.9 cm IVS Systolic Thickness 1.1 cm LVPW Diastolic Thickness 1.1 cm 0.6 - 1.0 / 0.6 - 0.9 cm LVPW Systolic Thickness 1.7 cm LVOT Diameter 2.0 cm LV Ejection Fraction 2D Teich 72.4 % LV Ejection Fraction MOD 4C 62.3 % LV Ejection Fraction MOD 2C 69.7 % LV Ejection Fraction 2C AL 69.6 % LA Diameter 3.2 cm RA Systolic Volume 4C AL 19.8 ml RA Systolic Volume 4C MOD 19.8 ml LA Sys Volume AL 21.5 cm cubed LA Sys Volume Index AL 10.4 cm cubed/m squared IVC Diameter 1.5 cm M-MODE LA Ao Ratio MM 1.2 AV Cusp Separation MM 2.0 cm DOPPLER AV Peak Velocity 125.0 cm/s LVOT Peak Velocity 119.0 cm/s AV Area Cont Eq vti 3.1 cm squared AV Area Cont Eq pk 2.9 cm squared MV Peak Velocity 76.0 cm/s MV Area PHT 3.3 cm squared Mitral E to A Ratio 0.7 TV Peak Velocity 112.5 cm/s TR Peak Velocity 127.0 cm/s TR Peak Gradient 6.5 mmHg TV Peak E Velocity 56.0 cm/s PV Peak Velocity 85.0 cm/s FINDINGS Left Ventricle Normal left ventricular size, systolic function and wall thickness, with no regional wall motion abnormalities. Left ventricular ejection fraction is estimated at 60 %. Grade I/IV diastolic dysfunction (abnormal relaxation filling pattern), normal to mildly elevated filling pressures. Right Ventricle The right ventricle is normal in size and function. Right Atrium The right atrium is normal in size. Left Atrium The left atrium is normal in size. Mitral Valve Structurally normal mitral valve without significant stenosis or prolapse. There is no mitral regurgitation. Aortic Valve Mild aortic valve calcification. No aortic valve stenosis. Trace aortic valve regurgitation. Tricuspid Valve Structurally normal tricuspid valve without significant stenosis or regurgitation. Pulmonary artery systolic pressure is normal. Pulmonic Valve Structurally normal pulmonic valve without significant stenosis. There is no pulmonic regurgitation. Pericardium Normal pericardium without effusion. Aorta Normal ascending aorta dimension. IVC The inferior vena cava appears normal. CONCLUSIONS Normal left ventricular size, systolic function and wall thickness, with no regional wall motion abnormalities. Left ventricular ejection fraction is estimated at 60 %. Grade I/IV diastolic dysfunction (abnormal relaxation filling pattern), normal to mildly elevated filling pressures. There is no pericardial effusion. No significant valve abnormalities. Right atrial pressure is around 5 mm of mercury. Nica Saldana MD (Electronically Signed) Final Date: 05 November 2024 22:52 S
== END 2024-11-02 14:32 | disposition home or self-care (01) ==
LOC: RAD 14:36
PROVIDERS: PCP Family Medicine; Visit Provider Internal Medicine Cardiovascular Disease
DX: R07.9 Chest pain, unspecified (principal); R06.02 Shortness of breath; R93.1 Abnormal findings on diagnostic imaging of heart and coronary circulation; I35.8 Other nonrheumatic aortic valve disorders
CPT/HCPCS: 93306

== ENCOUNTER → 2025-03-29 11:33 | Outpatient (BNVA) | payer MEDICARE, SELFPAY | PROVIDERS: PCP Family Medicine; Visit Provider Internal Medicine Cardiovascular Disease | DX: I25.10 Atherosclerotic heart disease of native coronary artery without angina pectoris (principal); I10 Essential (primary) hypertension; E78.5 Hyperlipidemia, unspecified; J44.9 Chronic obstructive pulmonary disease, unspecified | CPT/HCPCS: 99214 ==